=== PATIENT | female | born 1930 | race Caucasian/White ===

== ENCOUNTER 2017-03-12 08:30 | Inpatient (IN) | payer MEDICARE ==
[2017-03-12] MEDS ORDERED: ceFAZolin 2 GM PREMIX(*) 2 GM/50 ML BAG IVPB ONE (09:14)
[2017-03-12] MEDS ORDERED: Buffered Lidocaine 0.9% SYRIN* 5 ML/SYR SYRINGE ONE (09:14)
[2017-03-12] MEDS ORDERED: Bupivacaine 0.25% W/EPI* 50 ML VIAL ONE (09:18)
[2017-03-12] MEDS ORDERED: Insulin LISPRO* 1 UNITS UNIT SUBCUT ONE (09:43)
[2017-03-12] MEDS ORDERED: fentaNYL* 50 MCG/ML 2 ML VIAL (100 MCG VIAL) ONE ×2 (10:23→11:54)
[2017-03-12] MEDS ORDERED: Midazolam* 1 MG/ML 2 ML VIAL (2 MG) ONE ×2 (10:23→11:13)
[2017-03-12] MEDS ORDERED: Morphine PF AMP (0.5MG/ML)* 5 MG/10 ML AMP ONE (10:24)
[2017-03-12] MEDS ORDERED: Bupivacaine 0.5% SDV PF* 30 ML VIAL ONE (10:41)
[2017-03-12] MEDS ORDERED: Ondansetron INJ* 2 MG/ML VIAL IV PRN (11:28)
[2017-03-12] MEDS ORDERED: Propofol* 10 MG/ML 20 ML BTL IV PUSH ONE (11:33)
[2017-03-12] MEDS ORDERED: EPHEDrine (Pressors)* 50 MG/ML VIAL ONE (11:52)
[2017-03-12] MEDS ORDERED: Polyethylene Glycol 3350* 17 GM PACKET PO PRN (12:50)
[2017-03-12] MEDS ORDERED: Bisacodyl SUPP* 10 MG SUPP PR PRN (12:50)
[2017-03-12] MEDS ORDERED: oxyCODONE/Acetamin 5/325 MG* TAB PO PRN (12:56)
[2017-03-12] MEDS ORDERED: DiMENhydriNATE IV* 50 MG/ML VIAL IV PUSH PRN (12:56)
[2017-03-12] MEDS ORDERED: Nalbuphine* 20 MG/ML 1 ML VIAL IV PRN (12:56)
[2017-03-12] MEDS ORDERED: Naloxone* 0.4 MG/ML 1 ML VIAL IV PRN (12:56)
[2017-03-12] MEDS ORDERED: D5W 1/2 NS 1000 ML BAG* 1,000 ML IV SCH (13:00)
--- NOTE | 2017-03-12 13:12 | CONSULT ---
Subjective Date of Service: 03/12/17 Interval History: 86 yo F with hx of HTN, HLD, gout, ESRD on PD seen for co-management after L MIKEY. Patient currently drowsy from medications but denies pain or discomfort at this time. No complaints recently aside from arthritic pains. She usually ambulates with a walker or cane, occasionally a wheelchair for long distances. Family History: Unchanged from Admission - DM, cancer Social History: Unchanged from Admission - No tobacco abuse, no current ETOH or drug use Past Medical History: Unchanged from Admission - HTN, HLD, OA, gout, ESRD on PD Review of Systems - Measurements Intake and Output: Intake and Output Last 24 Hours 03/10/17 03/11/17 03/12/17 03/13/17 06:59 06:59 06:59 06:59 Output Total 20 Balance -20 Weight 78.744 kg Output: Residual 20 Ramirez 16 Fr 20 - Review of Systems Constitutional Symptoms: Negative: Fever Dermatology: Positive: Normal HEENT: Positive: Normal Eyes: Positive: Normal Thyroid: Positive: Normal Pulmonary: Positive: Normal Cardiology: Positive: Normal Gastroenterology: Positive: Normal Genital - Urinary: Positive: Normal Musculoskeletal: Positive: Joint Pain, Joint Stiffness, Arthritis Endocrinology: Positive: Normal Neurology: Positive: Normal Objective Active Medications: Amlodipine Besylate (Norvasc Tab*) 5 mg PO QAM [facility] Bisacodyl (Dulcolax Supp*) 10 mg [place] DAILY PRN Calcitriol (Rocaltrol Cap*) 0.25 mcg PO QAM ISA[facility] Dimenhydrinate (Dramamine Iv*) 12.5 mg IV PUSH Q6H PRN Diphenhydramine HCl (Benadryl Iv*) 12.5 mg IV Q6H PRN Docusate Sodium (Colace Cap*) 100 mg PO BID ISAÍAS Gabapentin (Neurontin Cap(*)) 100 mg PO 2200 ISA[facility]AS Heparin Sodium (Porcine) (Heparin Vial(*)) 5,000 units SUBCUT Q8HR [facility] Dextrose/Sodium Chloride (D5w 1/2 Ns 1000 Ml Bag*) 1,000 mls @ 100 mls/hr IV PER RATE ISAÍAS Cefazolin Sodium 1 gm/ Sodium (Chloride) 50 mls @ 200 mls/hr IVPB Q8H [facility] Lactulose (Lactulose*) 30 ml PO Q6H PRN Magnesium Hydroxide (Milk Of Magncraig Liq*) 30 ml PO BID ISAÍAS Metoprolol Tartrate (Lopressor Tab*) 50 mg PO 2200 ISAÍAS Morphine Sulfate (Morphine Inj (Syringe)*) 4 mg IV Q2H PRN Nalbuphine HCl (Nubain*) 5 mg IV Q6H PRN Naloxone HCl (Narcan*) 0.08 mg IV Q2M PRN Ondansetron HCl (Zofran Inj*) 4 mg IV ONCE PRN Ondansetron HCl (Zofran Inj*) 4 mg IV Q6H PRN Ondansetron HCl (Zofran Tab*) 4 mg PO Q6H PRN Oxycodone HCl (Roxycodone Tab*) 10 mg PO Q4H PRN Oxycodone/Acetaminophen (Percocet 5/325 Tab*) 1 tab PO Q3H PRN Oxycodone/Acetaminophen (Percocet 5/325 Tab*) 1 tab PO Q3H PRN Pantoprazole Sodium (Protonix Tab (Nf)) 40 mg PO QAM ISA[facility]AS Polyethylene Glycol/Electrolytes (Miralax*) 17 gm PO DAILY PRN Simvastatin (Zocor(Nf)) 20 mg PO 2200 ISAÍAS Warfarin Sodium (Coumadin Tab(*)) 8 mg PO ONCE@1700 ONE Vital Signs 03/12/17 09:25 Temperature 97.9 F Pulse Rate 76 Respiratory 16 Rate Blood Pressure 129/50 (mmHg) O2 Sat by Pulse 98 Oximetry Oxygen Devices in Use Now: Nasal Cannula Appearance: Elderly, F, laying in bed in NAD Eyes: No Scleral Icterus Ears/Nose/Mouth/Throat: - - Dry MM Neck: NL Appearance and Movements; NL JVP Respiratory: Symmetrical Chest Expansion and Respiratory Effort, Clear to Auscultation - in anterior dawson Cardiovascular: NL Sounds; No Murmurs; No JVD, RRR Abdominal: NL Sounds; No Tenderness; No Distention Lymphatic: No Cervical Adenopathy Extremities: No Edema, - - L hip with dressing in place Neurological: - - [place]st but oriented Assessment/Plan - Billing L MIKEY in an 86 yo F with hx of HTN, HLD, gout, ESRD on PD 1) L MIKEY - analgesia and AC as per Ortho - started on coumadin for tonight 2) HTN - continue home Metoprolol and Amlodipine 3) DM - hold home Glipizide - HISS 4) ESRD - Edith (Ortho PA) has gotten in touch with Paul for PD tonight - BMP in AM 5) DVT PPx - HSQ Thank you for this consult. Will continue to follow along.
[2017-03-12] MEDS ORDERED: Dextrose 50% Syringe 50 ML* 25 GM/50 ML SYRINGE IV PUSH PRN (13:14)
[2017-03-12] MEDS ORDERED: Heparin VIAL(*) 5000 UNITS/ML VIAL (FIVE THOUSAND) SUBCUT SCH (14:00)
--- NOTE | 2017-03-12 14:17 | RAD ---
INDICATION: Status post left total hip arthroplasty TECHNIQUE: 2 views of the pelvis were obtained. FINDINGS: The recently installed left hip prosthesis is anatomically aligned in the AP projection. There is no evidence of periprostatic fracture. Expected postsurgical changes include subcutaneous gas and overlying skin nickolas. Degenerative changes are noted at the right hip including joint space narrowing and early subchondral lucencies. IMPRESSION: Anatomic alignment of left hip prosthesis in the AP projection.
[2017-03-12] MEDS ORDERED: Warfarin TAB(*) 4 MG PO ONE (17:00)
[2017-03-12] MEDS: Insulin LISPRO* 1 UNITS UNIT SUBCUT SCH (17:46)
[2017-03-12] MEDS: ceFAZolin VIAL(*) 1 GM in NS 0.9% 50 ML* 50 ML IVPB SCH (20:12)
[2017-03-12] MEDS: Gabapentin CAP(*) 100 MG PO SCH (20:51)
[2017-03-12] MEDS: Magnesium Hydroxide LIQ* 30 ML UDC PO SCH (20:51)
[2017-03-12] MEDS: Docusate CAP* 100 MG PO SCH (21:09)
[2017-03-12] MEDS: Atorvastatin* 10 MG TAB PO SCH (21:09)
[2017-03-12] MEDS ORDERED: Metoprolol Tartrate TAB* 50 mg PO SCH (22:00)
[2017-03-13] MEDS ORDERED: Ondansetron TAB* 4 MG PO PRN (02:38)
[2017-03-13] MEDS ORDERED: diPHENhydraMINE IV* 50 MG/ML 1 ml VIAL (BENADRYL) IV PRN (02:38)
[2017-03-13] MEDS ORDERED: Morphine INJ* 4 MG/ML 1 ML SYRINGE IV PRN (02:38)
[2017-03-13] MEDS ORDERED: oxyCODONE/Acetamin 5/325 MG* TAB PO PRN (02:38)
[2017-03-13] MEDS: ceFAZolin VIAL(*) 1 GM in NS 0.9% 50 ML* 50 ML IVPB SCH ×2 (02:50→11:01)
--- NOTE | 2017-03-13 03:34 | OP ---
DATE OF OPERATION: 03/12/17 - ROOM #338 DATE OF : 34 SURGEON: Demetri Reeves MD CASINO HOST: Edith Lee RPA ANESTHESIOLOGIST: Rayne Butts MD ANESTHESIA: Spinal sedation. PREOPERATIVE DIAGNOSIS: Osteoarthritis, left hip. POSTOPERATIVE DIAGNOSIS: Osteoarthritis, left hip. PROCEDURE: Left total hip arthroplasty. ESTIMATED BLOOD LOSS: 250 cc. COMPLICATIONS: None. HARDWARE: Rylan 12.5 reduced neck standard offset M/L taper -3.5 mm, 36 mm head, 52 mm Continuum cup with 15-degree elevated liner. SUMMARY: Ms. Hercules is an 86-year-old female who has been indicated for a left total hip for some time. She always had some other medical complications. She had been treated conservatively with antiinflammatories initially and then injections, but these had all lost their effectiveness, plus with her kidney function, the antiinflammatories were contraindicated earlier on. Because of the hip pain, she is essentially wheelchair bound and even just transfers and lying down gives her significant pain. I discussed with her that total hip arthroplasty should work well to decrease that hip pain and give her some better mobility. Risks of surgery such as infection, scar formation, stiffness , DVT, pulmonary embolism, hardware failure, leg length discrepancy, and instability were some of the risks discussed. She had been declared medically optimized by her primary care, Cardiology and coordination was held with Nephrology such that she had dialysis this morning. DESCRIPTION OF PROCEDURE: The patient was brought to the OR and spinal anesthesia was introduced. Ramirez catheter was placed, a little bit of urine was obtained. Left hip area was prepped and then draped. Incision was made centered about the greater trochanter extending distally for about 8 cm and proximally for about 7 cm. Incision was carried down through the skin and subcutaneous fat. Small bleeders encountered were ligated using electrocautery. Fascia was exposed and sharply incised. Hohmann was placed under the gluteus medius/gluteus minimus and quite a bit of fatty tissue was about the short external rotators. Coming over the posterior edge of the greater trochanter, short external rotators and capsule were taken down together. She had quite a bit of scar and this allowed the leg to be moved a bit easier. T-capsulotomy was made. I actually had a little more room than I thought I would as I thought there would be quite the osteophyte coming over based on preoperative planning. Hip was able to be dislocated and the template was used to felton the femoral neck. Head was resected, but then got drawn right in to the acetabular socket. Corkscrew had to be used to remove the head and osteotome had been used to take down some of that posterior/superior osteophyte so that I could extract the head. It could be seen where I still had quite a bit of osteophyte anteriorly about the acetabulum as well. This would later be taken down using an osteotome and rongeur as well. Anterior C-retractor was placed so that I get better exposure of the acetabulum and an inferior acetabular retractor was also placed. Beginning with a 44-reamer, she was progressively reamed as I first came downwards and then slowly expanded at 46. I changed my angle to get my proper version and tilt. She was progressively expanded and at 51, had a nice side-to- side fit and good bleeding bone. This correlated well to preoperative templating. A 52-mm cup was called for and then impacted into place. Two screws were placed and a wonderful bite was obtained. Trial liner was placed and attention was turned to the proximal femur. Box osteotome was used to open the femoral canal and the intramedullary guide was run. Beginning with a #5 broach, she was progressively broached. With a 12.5, I had a very nice proximal fit and nice solid feel. She was trialed at first with a standard, but seemed tight for both length as well as offset. Reduced offset neck was then called for and trialed with a 0 head. She had very good stability, but in full adduction and internal rotation, would start to leave her out at about 35 degrees. Because of this, I decided to use the elevated liner. In extension, she was good as well as hyperflexion. Trial instrumentation was removed and elevated liner was then impacted into place. With removing the broach, she was still locked in solid and a 12.5 M/L taper was then impacted into place. She was trialed with a minus head and I liked her leg length much better as she seemed perfect. The -3.5 mm head was then impacted into place. Hip was relocated and then copiously pulse lavaged. Fascia was repaired using interrupted #1 Vicryl sutures. Wound was again copiously pulse lavaged and subcutaneous tissues were reapproximated in layers. Skin was closed using nickolas. Sterile dressing was applied. The patient was then rolled onto the hospital bed and was then stable on transfer to the recovery room. [id number]/[facility] #: [id number] MTDD
[2017-03-13 06:36] LABS: Hematocrit 25 % (35-47); Hemoglobin 8.5 g/dl (12.0-16.0)
[2017-03-13 06:51] LABS: Calcium 7.9 mg/dL (8.6-10.3); EGFR African American 19.1 (>60); EGFR Non-African American 14.9 (>60); Potassium 2.9 mmol/L (3.5-5.0)
[2017-03-13] MEDS ORDERED: Potassium Chlor TAB* 20 MEQ TAB.ER PO ONE (07:06)
[2017-03-13] MEDS ORDERED: Metoprolol Tartrate TAB* 50 mg PO SCH (07:22)
--- NOTE | 2017-03-13 07:23 | PN ---
Subjective Date of Service: 03/13/17 Interval History: Patient seen this morning. She had one episode of emesis after arriving to the floor but tolerated clears after that. Nursing notes state patient was dizzy overnight, she describes it as an "ache at the top of my head", resolved now. Pain is manageable. Family History: Unchanged from Admission Social History: Unchanged from Admission Past Medical History: Unchanged from Admission Objective Active Medications: Amlodipine Besylate (Norvasc Tab*) 5 mg PO QAM [facility] Atorvastatin Calcium (Lipitor*) 10 mg PO 220 [facility] Last Admin: 03/12/17 21:09 Dose: 10 mg Bisacodyl (Dulcolax Supp*) 10 mg [place] DAILY PRN PRN Reason: constipation Calcitriol (Rocaltrol Cap*) 0.25 mcg PO QAM [facility] Dextrose (D50w Syringe 50 Ml*) 12.5 gm IV PUSH .FOR FS < 60 - SS PRN PRN Reason: FS < 60 Diphenhydramine HCl (Benadryl Iv*) 12.5 mg IV Q6H PRN PRN Reason: PRURITIS Docusate Sodium (Colace Cap*) 100 mg PO BID [facility] Last Admin: 03/12/17 21:09 Dose: 100 mg Gabapentin (Neurontin Cap(*)) 100 mg PO 2199 [facility] Last Admin: 03/12/17 20:51 Dose: Not Given Heparin Sodium (Porcine) (Heparin Vial(*)) 5,000 units SUBCUT Q8HR [facility] Dextrose/Sodium Chloride (D5w 1/2 Ns 1000 Ml Bag*) 1,000 mls @ 100 mls/hr IV PER RATE [facility] Last Admin: 03/13/17 00:47 Dose: 100 mls/hr Cefazolin Sodium 1 gm/ Sodium (Chloride) 50 mls @ 200 mls/hr IVPB Q8H [facility] Stop: 03/13/17 11:14 Last Admin: 03/13/17 02:50 Dose: 200 mls/hr Insulin Human Lispro (Humalog*) 0 - 10 units SUBCUT AC [facility] PRN Reason: Protocol Last Admin: 03/12/17 17:46 Dose: 4 units Lactulose (Lactulose*) 30 ml PO Q6H PRN PRN Reason: constipation Magnesium Hydroxide (Milk Of Magnesia Liq*) 30 ml PO BID [facility] Last Admin: 03/12/17 20:51 Dose: Not Given Metoprolol Tartrate (Lopressor Tab*) 50 mg PO 2200 ISA[facility]AS Last Admin: 03/12/17 21:06 Dose: Not Given Morphine Sulfate (Morphine Inj (Syringe)*) 4 mg IV Q2H PRN PRN Reason: PAIN - BREAKTHROUGH Omeprazole (Prilosec Cap*) 20 mg PO QAM ISAÍAS Ondansetron HCl (Zofran Inj*) 4 mg IV Q6H PRN PRN Reason: nausea Ondansetron HCl (Zofran Tab*) 4 mg PO Q6H PRN PRN Reason: NAUSEA Oxycodone HCl (Roxycodone Tab*) 10 mg PO Q4H PRN PRN Reason: PAIN - MODERATE Oxycodone/Acetaminophen (Percocet 5/325 Tab*) 1 tab PO Q3H PRN PRN Reason: PAIN - MILD TO MODERATE Last Admin: 03/13/17 02:57 Dose: 1 tab Polyethylene Glycol/Electrolytes (Miralax*) 17 gm PO DAILY PRN PRN Reason: Constipation Potassium Chloride (Klor Con Er Tab*) 40 meq PO ONCE ONE Stop: 03/13/17 07:07 Vital Signs 03/12/17 03/12/17 03/12/17 09:25 12:50 12:55 Temperature 97.9 F 97.2 F Pulse Rate 76 73 74 Respiratory 16 14 14 Rate Blood Pressure 129/50 108/56 115/56 (mmHg) O2 Sat by Pulse 98 97 96 Oximetry 03/12/17 03/12/17 03/12/17 15:07 16:06 16:29 Temperature 96.3 F 96.1 F Pulse Rate 57 66 Respiratory 14 14 Rate Blood Pressure 120/49 113/45 (mmHg) O2 Sat by Pulse 100 100 98 Oximetry 03/12/17 03/12/17 03/12/17 18:05 19:15 19:47 Temperature 96.5 F 96.5 F Pulse Rate 88 79 Respiratory 17 16 16 Rate Blood Pressure 127/56 122/47 (mmHg) O2 Sat by Pulse 100 100 Oximetry 03/12/17 03/13/17 03/13/17 23:28 02:57 02:58 Temperature 97.0 F 97.8 F Pulse Rate 75 79 Respiratory 16 16 16 Rate Blood Pressure 122/50 133/48 (mmHg) O2 Sat by Pulse 100 100 Oximetry Oxygen Devices in Use Now: Nasal Cannula Appearance: Elderly, F, laying in bed in NAD Eyes: No Scleral Icterus Ears/Nose/Mouth/Throat: - - Dry MM Neck: NL Appearance and Movements; NL JVP Respiratory: Symmetrical Chest Expansion and Respiratory Effort, Clear to Auscultation Cardiovascular: NL Sounds; No Murmurs; No JVD, RRR Abdominal: NL Sounds; No Tenderness; No Distention, - - PD cath in place, dressing c/d/i Lymphatic: No Cervical Adenopathy Extremities: No Edema, - - L hip dressing in place Neurological: Alert and Oriented x 3 Lines/Tubes/Other Access: Clean, Dry and Intact Ramirez Result Diagrams: 03/13/17 06:27 03/13/17 06:27 Assess/Plan/Problems-Billing L MIKEY in an 86 yo F with hx of HTN, HLD, gout, ESRD on PD 1) L MIKEY - analgesia and AC as per Ortho - post-op anemia, no need for transfusion, continue to monitor 2) HTN - continue home Metoprolol (will liberalize parameters) and Amlodipine 3) DM - BGs elevated, likely to dextrose in IVF, will d/c for now - hold home Glipizide - HISS 4) ESRD - PD overnight - BMP shows some hypokalemia, will replete with just 40 mEq now and recheck this afternoon 5) DVT PPx - HSQ/Coumadin Thank you for this consult. Will continue to follow along.
[2017-03-13] MEDS: Magnesium Hydroxide LIQ* 30 ML UDC PO SCH ×2 (07:27→20:45)
[2017-03-13] MEDS: oxyCODONE TAB* 5 MG TAB PO PRN ×4 (08:04→20:45)
[2017-03-13] MEDS: Docusate CAP* 100 MG PO SCH ×2 (08:06→20:45)
[2017-03-13] MEDS: amLODIPine TAB* 5 MG PO SCH (08:06)
[2017-03-13] MEDS: Omeprazole CAP* 20 MG PO SCH (08:06)
[2017-03-13] MEDS: Insulin LISPRO* 1 UNITS UNIT SUBCUT SCH ×3 (08:07→16:48)
[2017-03-13] MEDS: Calcitriol CAP* 0.25 MCG PO SCH (08:11)
--- NOTE | 2017-03-13 08:44 | PN ---
Progress Note - Progress Note Date of Service: 03/13/17 SOAP: Subjective: []Patient seen ambulating from bed to chair with PT. C/o left hip pain but did well, feels nauseous but did not get her breakfast and took all of her am medications. Denies SOB, or dizziness. Objective: [] Vital Signs Temp 98.5 F 03/13/17 07:28 Pulse 79 03/13/17 07:28 Resp 16 03/13/17 08:04 BP 126/37 03/13/17 07:28 Pulse Ox 99 03/13/17 07:28 Intake & Output 03/12/17 03/13/17 03/13/17 18:59 06:59 18:59 Intake Total 800 2618 Output Total 260 550 Balance 540 2068 Weight 173 lb 9.6 oz Intake: IV Fluids 800 1514 D5W 1/2 NS 1514 LR 800 IVPB 104 ABX - CEFAZOLIN 104 Oral 1000 Output: Ramirez 150 550 Residual 20 Ramirez 16 Fr 20 Emesis 90 Other: Estimated Stool Amount Medium Laboratory Results - last 24 hr 03/12/17 03/12/17 03/12/17 09:36 09:55 12:56 Hgb Hct INR (Anticoag Therapy) Sodium Potassium Chloride Carbon Dioxide Anion Gap BUN Creatinine Est GFR ( Amer) Est GFR (Non-Af Amer) BUN/Creatinine Ratio Glucose POC Glucose (mg/dL) 205 H 192 H 151 H Calcium 03/12/17 03/12/17 03/13/17 17:36 20:46 06:27 Hgb 8.5 L Hct 25 L INR (Anticoag Therapy) Sodium Potassium Chloride Carbon Dioxide Anion Gap BUN Creatinine Est GFR ( Amer) Est GFR (Non-Af Amer) BUN/Creatinine Ratio Glucose POC Glucose (mg/dL) 204 H 290 H Calcium 03/13/17 03/13/17 06:27 06:27 Hgb Hct INR (Anticoag Therapy) 1.07 Sodium 135 Potassium 2.9 L Chloride 99 L Carbon Dioxide 27 Anion Gap 9 BUN 36 H Creatinine 3.00 H Est GFR ( Amer) 19.1 Est GFR (Non-Af Amer) 14.9 BUN/Creatinine Ratio 12.0 Glucose 375 H POC Glucose (mg/dL) Calcium 7.9 L left hip dressings are dry and intact +DF/PF left ankle calf non tender sensation intact distally Assessment: []s/p Left total hip arthroplasty POD #1 Plan: []PT/OT WBAT LLE Watch H/H will hold on transfusion today Coumadin with heparin bridge-6 mg today PMRU consult
[2017-03-13] MEDS: Heparin VIAL(*) 5000 UNITS/ML VIAL (FIVE THOUSAND) SUBCUT SCH ×2 (13:23→22:00)
[2017-03-13] MEDS: Ondansetron INJ* 2 MG/ML VIAL IV PRN ×2 (13:23→18:44)
[2017-03-13 14:17] LABS: BUN/Creatinine Ratio 11.4 (8-20); Calcium 8.3 mg/dL (8.6-10.3); EGFR African American 19.2 (>60); EGFR Non-African American 14.9 (>60); Potassium 3.2 mmol/L (3.5-5.0)
[2017-03-13] MEDS ORDERED: Warfarin TAB(*) 6 MG PO ONE (17:00)
[2017-03-13] MEDS: Gabapentin CAP(*) 100 MG PO SCH (22:00)
[2017-03-13] MEDS: Atorvastatin* 10 MG TAB PO SCH (22:01)
[2017-03-14] MEDS: oxyCODONE TAB* 5 MG TAB PO PRN ×3 (00:12→13:51)
[2017-03-14 05:16] LABS: Hematocrit 23 % (35-47); Hemoglobin 7.7 g/dl (12.0-16.0)
[2017-03-14] MEDS: Heparin VIAL(*) 5000 UNITS/ML VIAL (FIVE THOUSAND) SUBCUT SCH (06:06)
[2017-03-14] MEDS ORDERED: Potassium Chlor TAB* 20 MEQ TAB.ER PO ONE (07:36)
--- NOTE | 2017-03-14 07:48 | PN ---
Subjective Date of Service: 03/14/17 Interval History: Patient seen this morning. Said she had a "rough" day yesterday due to the pain but understands she needs to continue to push forward with rehab. Poor appetite. No chest pain or SOB. Reports 1 BM. Dressing changed by Dr. Reeves this morning. Family History: Unchanged from Admission Social History: Unchanged from Admission Past Medical History: Unchanged from Admission Objective Active Medications: Amlodipine Besylate (Norvasc Tab*) 5 mg PO QAM [facility] Atorvastatin Calcium (Lipitor*) 10 mg PO 2200 ISAÍAS Bisacodyl (Dulcolax Supp*) 10 mg [place] DAILY PRN Calcitriol (Rocaltrol Cap*) 0.25 mcg PO QAM ISA[facility] Dextrose (D50w Syringe 50 Ml*) 12.5 gm IV PUSH .FOR FS < 60 - SS PRN Diphenhydramine HCl (Benadryl Iv*) 12.5 mg IV Q6H PRN Docusate Sodium (Colace Cap*) 100 mg PO BID ISAÍAS Gabapentin (Neurontin Cap(*)) 100 mg PO 2200 [facility] Insulin Human Lispro (Humalog*) 0 - 10 units SUBCUT AC [facility]AS Lactulose (Lactulose*) 30 ml PO Q6H PRN Magnesium Hydroxide (Milk Of Magnesia Liq*) 30 ml PO BID ISAÍAS Metoprolol Tartrate (Lopressor Tab*) 50 mg PO 2200 IS[facility] Morphine Sulfate (Morphine Inj (Syringe)*) 4 mg IV Q2H PRN Mupirocin (Bactroban 2 % Oint*) 1 applic TOPICAL DAILY [facility]AS Omeprazole (Prilosec Cap*) 20 mg PO QAM [facility] Ondansetron HCl (Zofran Inj*) 4 mg IV Q6H PRN Ondansetron HCl (Zofran Tab*) 4 mg PO Q6H PRN Oxycodone HCl (Roxycodone Tab*) 10 mg PO Q4H PRN Oxycodone/Acetaminophen (Percocet 5/325 Tab*) 1 tab PO Q3H PRN Pharmacy Profile Note (Coumadin Daily Reminder*) 1 note FOLLOW UP 1700 ISAÍAS Polyethylene Glycol/Electrolytes (Miralax*) 17 gm PO DAILY PRN Potassium Chloride (Klor Con Er Tab*) 40 meq PO ONCE ONE Warfarin Sodium (Coumadin Tab(*)) 2 mg PO ONCE@1700 NR Vital Signs 03/13/17 03/13/17 03/13/17 13:15 13:56 14:04 Temperature 97.4 F Pulse Rate 88 91 Respiratory 16 Rate Blood Pressure 125/40 141/49 (mmHg) O2 Sat by Pulse 100 100 100 Oximetry 03/14/17 07:33 Temperature 99.6 F Pulse Rate 80 Respiratory 16 Rate Blood Pressure 117/40 (mmHg) O2 Sat by Pulse 94 Oximetry Oxygen Devices in Use Now: Nasal Cannula Appearance: Elderly, F, laying in bed in NAD Eyes: No Scleral Icterus Ears/Nose/Mouth/Throat: - - Dry MM Neck: NL Appearance and Movements; NL JVP Respiratory: Symmetrical Chest Expansion and Respiratory Effort, - - Slight inspiratory wheeze in R base, otherwise clear Cardiovascular: NL Sounds; No Murmurs; No JVD, RRR Abdominal: NL Sounds; No Tenderness; No Distention Lymphatic: No Cervical Adenopathy Extremities: No Edema, - - L hip dressing in place, c/d/i Neurological: Alert and Oriented x 3 Result Diagrams: 03/14/17 04:59 03/13/17 13:54 Assess/Plan/Problems-Billing L MIKEY in an 86 yo F with hx of HTN, HLD, gout, ESRD on PD 1) L MIKEY - analgesia and AC as per Ortho - post-op anemia, Hb drifting down, continue to monitor daily 2) HTN - continue home Metoprolol and Amlodipine 3) DM - BGs improved off of dextrose IVF - hold home Glipizide - HISS 4) ESRD - PD overnight - Replete K, recheck BMP this afternoon 5) DVT PPx - SCDS/Coumadin Thank you for this consult. Will continue to follow along.
[2017-03-14] MEDS: Insulin LISPRO* 1 UNITS UNIT SUBCUT SCH ×3 (08:47→16:43)
[2017-03-14] MEDS: Omeprazole CAP* 20 MG PO SCH (08:49)
[2017-03-14] MEDS: Docusate CAP* 100 MG PO SCH (08:49)
[2017-03-14] MEDS: amLODIPine TAB* 5 MG PO SCH (08:50)
[2017-03-14] MEDS: Magnesium Hydroxide LIQ* 30 ML UDC PO SCH (08:51)
[2017-03-14] MEDS ORDERED: Mupirocin 2% OINT* TUBE TOPICAL SCH (09:00)
[2017-03-14] MEDS: Calcitriol CAP* 0.25 MCG PO SCH (09:20)
[2017-03-14 13:03] LABS: BUN/Creatinine Ratio 11.3 (8-20); Calcium 8.2 mg/dL (8.6-10.3); EGFR African American 16.8 (>60); Potassium 3.8 mmol/L (3.5-5.0)
[2017-03-14 15:43] VITALS: BP 145/40
[2017-03-14] MEDS ORDERED: Warfarin TAB(*) 2 MG PO ONE (17:00)
--- NOTE | 2017-03-15 03:08 | DS ---
DISCHARGE SUMMARY: DATE OF ADMISSION: 03/12/17 DATE OF DISCHARGE: 03/14/17 ATTENDING PHYSICIAN: Demetri Reeves MD * (DICTATED BY ISRAEL IRVING) ADMISSION DIAGNOSIS: End-stage osteoarthritis, left hip. DISCHARGE DIAGNOSIS: End-stage osteoarthritis, left hip. SURGERY PERFORMED: Left total hip arthroplasty. HOSPITAL COURSE: The patient is an 86-year-old female, who has had significant pain in her left hip for quite some time. She was essentially wheelchair bound even just for transfers and lying down gave her significant pain. Due to the fact that she had other medical complications including end-stage renal disease with peripheral dialysis, this delayed her ability to have surgery. She was found to be at a point medically where she was stable to undergo total hip arthroplasty and she elected to proceed. She was taken to the operating room under the care of Dr. Demetri Reeves for the afore-mentioned surgery on the date of 03/12/17. She tolerated the surgery well and left the operating room in stable condition. The patient progressed satisfactorily with her physical therapy and occupational therapy goals; however, it was felt she would benefit from additional rehabilitation at the [facility] rehabilitation unit here at [facility]. She was found to be an acceptable candidate and was medically and orthopedically stable for discharge to the rehab unit on the date of . CONDITION ON DISCHARGE: The patient is afebrile. Her vital signs are stable. Her H and H is running slightly low at 7.7 and 23; however, Dr. Reeves is aware and Dr. Estevez is also aware. The patient is currently asymptomatic, does not complain of excessive somnolence or feeling lightheaded or dizzy upon standing. Her left hip incision is healing without evidence of infection. Her calf is soft and nontender. She has active dorsiflexion and plantarflexion of her left foot. She has a 2+ pedal pulse and has full sensation throughout the left lower extremity. PLAN: Discharge to [facility] rehabilitation. She will continue with Coumadin for DVT prophylaxis, which will be managed by Dr. Estevez. Her INR on discharge today is 1.89. She is receiving 2 mg of Coumadin today, 03/14/17, with repeat INR per Dr. Estevez's parameters. She will continue to bear weight as tolerated and will follow up with Dr. Reeves as scheduled in roughly 3 weeks in the office. ISRAEL IRVING [id number]/[facility] #: [id number] [facility] CENTERJulius
== END 2017-03-14 16:54 | DRG 469 ==
LOC: AA 09:13 → SSU 14:07
PROVIDERS: ADMIT Orthopaedic Surgery; ATTEND Orthopaedic Surgery
PROC: 3E1M39Z Irrigation of Peritoneal Cavity using Dialysate, Percutaneous Approach (ICD-10-PCS; 2017-03-12)
PROC: 0SRB02A Replacement of Left Hip Joint with Metal on Polyethylene Synthetic Substitute, Uncemented, Open Approach (ICD-10-PCS; principal; 2017-03-12 10:00)
DX: M16.12 Unilateral primary osteoarthritis, left hip (principal); N18.6 End stage renal disease; E11.22 Type 2 diabetes mellitus with diabetic chronic kidney disease; I12.0 Hypertensive chronic kidney disease with stage 5 chronic kidney disease or end stage renal disease; E78.5 Hyperlipidemia, unspecified; E11.40 Type 2 diabetes mellitus with diabetic neuropathy, unspecified; M25.752 Osteophyte, left hip; E66.9 Obesity, unspecified; I89.0 Lymphedema, not elsewhere classified; M10.9 Gout, unspecified; D64.9 Anemia, unspecified; E87.6 Hypokalemia; Z90.710 Acquired absence of both cervix and uterus; Z90.79 Acquired absence of other genital organ(s); Z99.2 Dependence on renal dialysis; Z68.27 Body mass index [BMI] 27.0-27.9, adult; Z87.442 Personal history of urinary calculi; Z79.4 Long term (current) use of insulin; Z90.722 Acquired absence of ovaries, bilateral; Z83.3 Family history of diabetes mellitus; Z80.9 Family history of malignant neoplasm, unspecified; Z99.3 Dependence on wheelchair; Z98.49 Cataract extraction status, unspecified eye
CPT/HCPCS: 36415; 72170; 80048; 85014; 85018; 85610; 90945; 94760; A9270-GY; C1713; C1776; G0257; J0690; J1644; J2250; J2300; J2405; J2704; J3010

== ENCOUNTER 2017-03-14 14:26 | Inpatient (IN) | payer MEDICARE ==
[2017-03-14] MEDS ORDERED: Bisacodyl SUPP* 10 MG SUPP PR PRN (17:30)
[2017-03-14] MEDS ORDERED: Senna TAB PO PRN (17:30)
[2017-03-14] MEDS ORDERED: Dextrose 50% Syringe 50 ML* 25 GM/50 ML SYRINGE IV PUSH PRN (17:36)
[2017-03-14] MEDS ORDERED: Warfarin TAB(*) 2 MG PO ONE (18:00)
[2017-03-14] MEDS: oxyCODONE/Acetamin 5/325 MG* TAB PO PRN (18:58)
[2017-03-14] MEDS ORDERED: oxyCODONE TAB* 5 MG TAB PO PRN (19:15)
[2017-03-14] MEDS: Docusate CAP* 100 MG PO SCH (20:02)
[2017-03-14] MEDS: Metoprolol Tartrate TAB* 50 mg PO SCH (22:02)
[2017-03-14] MEDS: Atorvastatin* 10 MG TAB PO SCH (22:02)
[2017-03-14] MEDS: Gabapentin CAP(*) 100 MG PO SCH (22:02)
--- NOTE | 2017-03-14 23:42 | HP ---
ADMISSION HISTORY AND PHYSICAL: DATE OF ADMISSION: 03/14/17 REASON FOR ADMISSION: Left total hip replacement. HISTORY OF PRESENT ILLNESS: Selina Hercules is an 86-year-old female. She has a medical history significant for end-stage renal disease and does peritoneal dialysis. Her qualitative executive researcher is Dr. Parmar. She in addition has a history of diabetes and hypertension, as well as hyperlipidemia. The patient has been plagued by left hip pain for quite some time. She felt like she was having difficulty even putting weight to the left leg while walking. She was scheduled to have a left total hip replacement. The original schedule had to be adjusted as the patient developed open wounds in her left leg and the surgery had to be postponed. The patient otherwise seemed to be good and her total hip replacement was scheduled for mid February. Unfortunately, her in early January. The patient; however, wished to go through with the surgery. She was admitted to [facility] on 03/12/17 and underwent and a left total hip arthroplasty that day. Postoperatively, she continued on peritoneal dialysis. She was started on Coumadin for DVT prophylaxis. She had acute blood loss anemia, but did not require a transfusion. She was felt to have physical therapy and occupational therapy needs. She is now being admitted for inpatient rehab so that she might return to independent living. PAST MEDICAL HISTORY: Significant for the aforementioned end-stage renal disease on peritoneal dialysis, she has a history of hypertension, hyperlipidemia, and diabetes. CURRENT MEDICATIONS: Include: 1. Norvasc. 2. Lipitor. 3. Rocaltrol. 4. Neurontin. 5. Lopressor. 6. Oxycodone. 7. Coumadin. 8. Prilosec. In addition, at home, she was taking Protonix instead of Prilosec and Zocor instead of Lipitor. She was taking methadone, although did not like it and was on glipizide 10 mg daily for diabetes. ALLERGIES: The patient has allergies listed to BACTRIM as well as SULFA antibiotics. SOCIAL HISTORY: She is a nonsmoker, nondrinker. She lives in a two-neal house by herself. She is going to have a friend to help set up peritoneal dialysis after discharge. As mentioned, her 6 weeks ago. REVIEW OF SYSTEMS: The patient reports no current shortness of breath or chest pain. PHYSICAL EXAMINATION VITAL SIGNS: Her temperature is 98, blood pressure is 145/49, pulse 57, respirations 18. HEENT: Her extraocular movements are intact. Tongue is midline. NECK: Supple. LUNGS: Clear to auscultation bilaterally. HEART: Sounds are regular. S1 and S2 are audible. ABDOMEN: Soft and nontender. Her peritoneal dialysis catheter site is clean. EXTREMITIES: Her left hip has a wound which is clean and dry. Peripheral pulses were intact. NEUROLOGIC: She is awake, alert, oriented. Muscle strength 5+/5 except the left hip which is 3/5 secondary to pain. FUNCTIONAL EXAM: She transfers with max assist. ASSESSMENT: Elective left total hip replacement in a patient with end-stage renal disease on peritoneal dialysis. PLAN: Integrate her into a comprehensive and therapeutic rehab program with the following goals: 1. Physical Therapy will work with the patient. They are going to work on functional transfer training and ambulation training with a walker. 2. Occupational Therapy will see the patient and work on her activities of daily living including toileting and toilet transfers. 3. Coumadin for DVT prophylaxis. 4. Adequate analgesia. 5. Her bowels will be regulated. 6. We will consult the dialysis team for peritoneal dialysis. 7. Advance directives: The patient is a full code. Her daughter is her surrogate decision maker. 8. For diabetes, we will do fingersticks 4 times a day with sliding scale insulin. We will restart her glipizide. 9. Continue Lipitor for hyperlipidemia. 10. Family training as appropriate. 11. director of student financial services will be closely involved to make sure that any services and equipment that the patient requires are in place prior to discharge. 12. Home with appropriate services. ESTIMATED LENGTH OF STAY: 12 to 14 days. [id number]/[facility] #: [id number] [facility]INT[facility]
[2017-03-15] MEDS: Acetaminophen TAB* 325 MG PO PRN ×2 (05:51→22:05)
[2017-03-15] MEDS: Omeprazole CAP* 20 MG PO SCH (05:51)
[2017-03-15 06:42] LABS: Hematocrit 22 % (35-47); Hemoglobin 7.3 g/dl (12.0-16.0); Mean Corpuscular HGB Conc 33 g/dl (31-36); Mean Corpuscular Hemoglobin 33 pg (27-31); Mean Corpuscular Volume 98 fL (80-97); Mean Platelet Volume 7 um3 (7.4-10.4); Red Blood Count 2.24 10^6/ul (4.0-5.4); Red Cell Distribution Width 14 % (10.5-15); White Blood Count 5.6 10^3/ul (3.5-10.8)
[2017-03-15 07:08] LABS: ALT < 3 U/L (7-52); AST 16 U/L (13-39); Albumin 2.6 g/dL (3.2-5.2); Alkaline Phosphatase 51 U/L (34-104); Anion Gap 7 mmol/L (2-11); BUN/Creatinine Ratio 10.2 (8-20); Blood Urea Nitrogen 38 mg/dL (6-24); CO2 Carbon Dioxide 28 mmol/L (22-32); Calcium 8.1 mg/dL (8.6-10.3); Chloride 97 mmol/L (101-111); EGFR African American 14.9 (>60); EGFR Non-African American 11.6 (>60); Globulin 2.9 g/dL (2-4); Glucose 151 mg/dL (70-100); Potassium 4.1 mmol/L (3.5-5.0); Sodium 132 mmol/L (133-145); Total Protein 5.5 g/dL (6.4-8.9)
[2017-03-15] MEDS: Calcitriol CAP* 0.25 MCG PO SCH (10:41)
[2017-03-15] MEDS: Insulin LISPRO* 1 UNITS UNIT SUBCUT SCH ×3 (10:41→18:27)
[2017-03-15] MEDS: Docusate CAP* 100 MG PO SCH ×2 (10:43→22:05)
[2017-03-15] MEDS: amLODIPine TAB* 5 MG PO SCH (10:43)
[2017-03-15] MEDS: oxyCODONE/Acetamin 5/325 MG* TAB PO PRN (10:51)
--- NOTE | 2017-03-15 15:38 | RAD ---
HISTORY: Cough COMPARISONS: February 28, 2017 VIEWS: 4: Frontal dual-energy and lateral views of the chest. FINDINGS: CARDIOMEDIASTINAL SILHOUETTE: The cardiomediastinal silhouette is normal. HERMAN: The herman are normal. PLEURA: The costophrenic angles are sharp. No pleural abnormalities are noted. LUNG PARENCHYMA: The lungs are clear. ABDOMEN: The upper abdomen is clear. There is no subphrenic gas. BONES AND SOFT TISSUES: Degenerative changes are noted along the spine. OTHER: None. IMPRESSION: NO ACTIVE CARDIOPULMONARY DISEASE.
[2017-03-15] MEDS ORDERED: Atorvastatin* 10 MG TAB PO SCH (17:00)
[2017-03-15] MEDS ORDERED: Warfarin TAB(*) 2 MG PO ONE (19:00)
[2017-03-15] MEDS: Metoprolol Tartrate TAB* 50 mg PO SCH (22:04)
[2017-03-15] MEDS: Atorvastatin* 10 MG TAB PO SCH (22:05)
[2017-03-15] MEDS: Gabapentin CAP(*) 100 MG PO SCH (22:05)
[2017-03-16] MEDS: oxyCODONE/Acetamin 5/325 MG* TAB PO PRN ×2 (05:21→19:01)
[2017-03-16] MEDS: Omeprazole CAP* 20 MG PO SCH (07:57)
[2017-03-16] MEDS: amLODIPine TAB* 5 MG PO SCH (07:57)
[2017-03-16] MEDS: Docusate CAP* 100 MG PO SCH ×2 (07:57→20:04)
[2017-03-16] MEDS: Calcitriol CAP* 0.25 MCG PO SCH (07:57)
[2017-03-16] MEDS: Insulin LISPRO* 1 UNITS UNIT SUBCUT SCH ×3 (07:58→17:41)
[2017-03-16 08:46] LABS: Hematocrit 22 % (35-47); Hemoglobin 7.5 g/dl (12.0-16.0); Mean Corpuscular HGB Conc 34 g/dl (31-36); Mean Corpuscular Hemoglobin 33 pg (27-31); Mean Corpuscular Volume 98 fL (80-97); Mean Platelet Volume 7 um3 (7.4-10.4); Red Blood Count 2.28 10^6/ul (4.0-5.4); Red Cell Distribution Width 15 % (10.5-15); White Blood Count 5.4 10^3/ul (3.5-10.8)
[2017-03-16 10:49] LABS: Urine Bacteria 1+ (Absent); Urine Bilirubin Negative (Negative); Urine Glucose Negative (Negative); Urine Nitrite Negative (Negative)
--- NOTE | 2017-03-16 12:20 | PMRUTEAM ---
PMRU: Goals Current Status: Nursing: Current Status Skin Deviations [Left hip] Incision Skin Deviations [Buttocks] Bruise Skin Deviations [Left Abdomen] Other Skin Deviations [Bilateral Arm Rash ] Skin Deviations [Bilateral Leg Other ] Skin Deviation Description [ purple bruise covering inside of buttocks shaped Buttocks] like a bedpan. Patient doesn't feel it. Skin Deviation Description [ peritoneal dialysis port Left Abdomen] Skin Deviation Description [ some tiny open spots on right arm, right arm rash Bilateral Arm] more pronounced than left, especially in fold of elbow. Right arm also warmer. 5" bruise on right arm. Skin Deviation Description [ discoloration noted Bilateral Leg] Physical Therapy: Current Status Bed Mobility Assistance mod assist to get legs in Transfer Moblility Assistance Mod Assist Transfer/Bed Mobility Rolling Walker Recommended Devices Ambulation Assistance Contact Guard Assist Ambulation Assistive Devices Rolling Walker Number of Feet Patient 100ft Ambulated Occupational Therapy: Current Status Upper Body Dressing set up Lower Body Dressing min a/cga Bathing min Assist Toileting Min Assist- contact guard Toilet Transfer Min Assist Eating Independent Rec Therapy: Current Status Summary of Assessment and Pt. was open to conversation - very talkative and Clinical Impression expressive throughout. Pt. spoke in depth about her whom in January 2017 - pt. was very tearful about this. Pt. observed to benefit from sharing stories and reminiscing. Treatment Goals Pt. will engage in leisure activities while on the unit. Treatment Plan Provide RT services and encourage involvement. Provide 1:1 sessions to allow for expression. Enter co founder and cto consult. Social Work: Current Status Discharge Plan return home with home care svs and support from friends and pvt duty ASSIST[employer]ARY Potential for Family Training TBD if pt's ASSISTANT CORPORATE SECRETARY will be available Anticipated Discharge Home Destination Discharge With home care svs and family support Goals: Physical Therapy: Initial Goals Bed Mobility Assistance Independent Transfer Mobility Assistance Independent Transfer/Bed Mobility Rolling Walker Recommended Devices Ambulation Independent Ambulation Recommended Devices Rolling Walker Ambulation Distance 150 Stairs Assistance Independent Stair Recommended Devices Two Rails Number of Stairs 5 Occupational Therapy: Initial Goals Goals to be Completed in (Days 7-10 ) Upper Body Bathing Routine Independent Lower Body Bathing Routine Modified Independent with Upper Body Dressing Routine Independent Lower Body Dressing Routine Modified Independent with Toilet Hygeine and Clothing Modified Independent with Management Routine Toilet Transfer Routine Modified Independent with Tub Transfer Routine Modified Independent with Functional Transfers for ADL Modified Independent with Grooming Routine Independent Social Work: Goals Discharge Plan return home with home care svs and support from friends and pvt duty ASSISTANT [employer]PORATE SECRETARY Potential for Family Training TBD if pt's ASSISTANT CORPORATE SECRETARY will be available Anticipated Discharge Home Destination Discharge With home care svs and family support Care Plan: Care Plan ADL's - Improve/Maintain Start: 03/14/17 21:50 Freq: DAILY Status: Active Target: Activity Type Activity Date Activity User E-Sign Co-Sign Detail Recorded Client Recorded Date Recorded By Document 03/15/17 14:39 [id number] 03/15/17 14:39 [id number] 03/15/17 14:39 PMRU Outcome: ADL's/ADL Transfers Orders/Interventions Occupational Therapy Evaluation & Treatment Communication Tool in Patient Room Device Yes: FWW, w/c Patient to receive OT 5x/wk for 60-120 Therex min/day Self Care Management Group Therapy UE/LE ADL's with Assist Yes ADL Transfers with Assist Yes Toileting: Transfers,Clothing Management Yes ,Hygeine w/Assist Light Kitchen/Laundry w/Assist Yes Progression Toward Outcome/Goals Progressing Outcome/Goals Met Pt progressing toward OT goals . Pt demonstrating increased indepdence with functional transfers and self care tasks . Communication-Improve/Maintain Start: 03/14/17 21:50 Freq: DAILY Status: Active Target: Activity Type Activity Date Activity User E-Sign Co-Sign Detail Recorded Client Recorded Date Recorded By Document 03/16/17 00:52 [id number] [id number] 03/16/17 00:53 [id number] 03/16/17 00:52 PMRU Outcome: Communication/Cognitive Status Outcome/Goals Use Comm Tools/ Devices Makes Needs Known Effectively Progression Toward Outcomes/Goals Progressing Coping/Psych-Improve/Maintain Start: 03/14/17 21:50 Freq: DAILY Status: Active Target: Activity Type Activity Date Activity User E-Sign Co-Sign Detail Recorded Client Recorded Date Recorded By Document 03/15/17 20:45 [id number] 03/15/17 20:46 [id number] 03/15/17 20:45 PMRU Outcome: Coping/Psychosocial Coping Outcome/Goals Verbalization of Acceptance of Rehab Admit Verbalization of Sense of Control Over Health Status Utilization of Available Support Systems Psychosocial Outcome/Goals Maintain/ Improve Emotional Health Demonstrates Knowledge of Healthy Coping Mechanisms Available Cooperate/ Participate in Plan Progression Toward Outcome/Goals - Progressing Coping Progression Toward Outcome/Goals - Progressing Psychosocial DVT Prophylaxis- Improve/Maintain Start: 03/14/17 21:50 Freq: DAILY Status: Active Target: Activity Type Activity Date Activity User E-Sign Co-Sign Detail Recorded Client Recorded Date Recorded By Document 03/15/17 20:45 [id number] 03/15/17 20:46 [id number] 03/15/17 20:45 PMRU Outcome: DVT Prophylaxis Outcome/Goals Remains Free of DVT Complies with DVT Prophylaxis /Treatment TEDS Stockings on Every AM, Off at HS Progression Toward Outcome/Goals Progressing Discharge Planning - Improve/Maintain Start: 03/14/17 21:50 Freq: DAILY Status: Active Target: Activity Type Activity Date Activity User E-Sign Co-Sign Detail Recorded Client Recorded Date Recorded By Document 03/16/17 00:52 [id number] [id number] 03/16/17 00:53 [id number] 03/16/17 00:52 PMRU Outcome: Discharge Planning Update Patient Family No Outcome/Goals Demonstrates Understanding of Discharge Plan Progression Toward Outcome/Goals Progressing /GI-Improve/Maintain Start: 03/14/17 21:50 Freq: DAILY Status: Active Target: Activity Type Activity Date Activity User E-Sign Co-Sign Detail Recorded Client Recorded Date Recorded By Document 03/15/17 20:45 [id number] 03/15/17 20:46 [id number] 03/15/17 20:45 PMRU Outcome: Genitourinary/ Gastrointestinal Genitourinary- Outcome/Goals Maintain/ Achieve Urinary Continence Remain Free of Hospital- Acquired UTI Gastrointestinal-Outcome/Goals Maintain/ Achieve Bowel Regularity in Accordance with Pt's Baseline Prevent Constipation Bowel Program Progression Toward Outcome/Goals - Progressing Mobility- Improve/Maintain Start: 03/14/17 21:50 Freq: DAILY Status: Active Target: Activity Type Activity Date Activity User E-Sign Co-Sign Detail Recorded Client Recorded Date Recorded By Document 03/15/17 17:44 [id number] 03/15/17 17:46 [id number] 03/15/17 17:44 PMRU Outcome: Mobility Physical Therapy Evaluation and Yes Treatment Activity OOB with Assistance Yes WBAT Yes Device Yes Assistance Yes Patient to be seen 5x/wk for 60-120 min/ Therex day for: Mobility Training Gait Training W/C Mobility Balance Outcome/Goals Maintain/ Achieve Baseline Mobility Status Improve Mobility Status Demonstrates Proper Use of Assistive Devices Free from Complications of Immobility Bed Mobility Yes: independent Transfers Yes: independent with rolling walker Gait x ft Yes: independent with rolling walker 150' Up/Down Stairs Yes: independent with 2 rails up /down 5 stairs Nutrition/Swallowing- Improve/Maintain Start: 03/14/17 21:50 Freq: DAILY Status: Active Target: Activity Type Activity Date Activity User E-Sign Co-Sign Detail Recorded Client Recorded Date Recorded By Document 03/15/17 20:45 [id number] 03/15/17 20:46 [id number] 03/15/17 20:45 PMRU Outcome: Nutrition/Swallowing Outcome/Goals Demonstrates Adequate Hydration/ Prevents Dehydration Maintain/ Improve Nutritional Status Progression Toward Outcome/Goals Progressing Pain/Comfort- Improve/Maintain Start: 03/14/17 21:50 Freq: DAILY Status: Active Target: Activity Type Activity Date Activity User E-Sign Co-Sign Detail Recorded Client Recorded Date Recorded By Document 03/15/17 20:45 [id number] 03/15/17 20:46 [id number] 03/15/17 20:45 PMRU Outcome: Pain/Comfort Outcome/Goals Demonstrates Knowledge and Use of Available Comfort Measures Achieves Acceptable Comfort/Pain Level as Determined by Patient/Condit Maintain Comfort Level Allowing Patient to Fully Participate in Rehab Progression Toward Outcome/Goals Progressing Safety- Improve/Maintain Start: 03/14/17 21:50 Freq: DAILY Status: Active Target: Activity Type Activity Date Activity User E-Sign Co-Sign Detail Recorded Client Recorded Date Recorded By Document 03/15/17 20:45 [id number] 03/15/17 20:46 [id number] 03/15/17 20:45 PMRU Outcome: Safety Outcome/Goals Remain Free of Injury or Harm Cooperates with Safety Measures for Least Restrictive Environment Prevent Falls/ Injury Equipment Needed Progression Toward Outcome/Goals Progressing Skin- Improve/Maintain Start: 03/14/17 21:50 Freq: DAILY Status: Active Target: Activity Type Activity Date Activity User E-Sign Co-Sign Detail Recorded Client Recorded Date Recorded By Document 03/15/17 20:45 [id number] 03/15/17 20:46 [id number] 03/15/17 20:45 PMRU Outcome: Skin Skin Risk Level Medium Skin Orders Turn/Position q2hr While in Bed Outcome/Goals Maintain/ Improve Skin Intergrity Surgical Incisions Healing Progression Toward Outcome/Goals Progressing Medicine Note: Length of Stay: [1 week] Anticipated Discharge Destination: Home Tentative Discharge Date: [03/23/17] Discharged to: [home]
[2017-03-16] MEDS: Ciprofloxacin TAB* 500 MG PO SCH (14:05)
[2017-03-16] MEDS: Polyethylene Glycol 3350* 17 GM PACKET PO PRN (14:41)
[2017-03-16] MEDS: Warfarin TAB(*) 3 MG PO SCH (16:44)
[2017-03-16] MEDS ORDERED: Warfarin TAB(*) 2 MG PO SCH (17:00)
[2017-03-16] MEDS: Metoprolol Tartrate TAB* 50 mg PO SCH (21:14)
[2017-03-16] MEDS: Gabapentin CAP(*) 100 MG PO SCH (21:14)
[2017-03-16] MEDS: Atorvastatin* 10 MG TAB PO SCH (21:14)
[2017-03-17] MEDS: oxyCODONE/Acetamin 5/325 MG* TAB PO PRN (05:00)
[2017-03-17] MEDS: Ciprofloxacin TAB* 500 MG PO SCH (07:33)
[2017-03-17] MEDS: Omeprazole CAP* 20 MG PO SCH (07:33)
[2017-03-17] MEDS: amLODIPine TAB* 5 MG PO SCH (07:33)
[2017-03-17] MEDS: Docusate CAP* 100 MG PO SCH ×2 (07:33→21:00)
[2017-03-17] MEDS: Insulin LISPRO* 1 UNITS UNIT SUBCUT SCH ×3 (07:33→17:11)
[2017-03-17] MEDS: Calcitriol CAP* 0.25 MCG PO SCH (07:34)
[2017-03-17] MEDS: Polyethylene Glycol 3350* 17 GM PACKET PO PRN (07:39)
[2017-03-17] MEDS: glipiZIDE TAB* 5 MG PO SCH (11:17)
[2017-03-17 13:40] LABS: BUN/Creatinine Ratio 11.5 (8-20); Calcium 7.9 mg/dL (8.6-10.3); EGFR African American 14.8 (>60); EGFR Non-African American 11.5 (>60); Magnesium 1.8 mg/dL (1.9-2.7); Potassium 3.7 mmol/L (3.5-5.0)
[2017-03-17] MEDS: Warfarin TAB(*) 3 MG PO SCH (17:10)
[2017-03-17] MEDS: Metoprolol Tartrate TAB* 50 mg PO SCH (21:00)
[2017-03-17] MEDS: Gabapentin CAP(*) 100 MG PO SCH (21:00)
[2017-03-17] MEDS: Atorvastatin* 10 MG TAB PO SCH (21:01)
[2017-03-18] MEDS: Docusate CAP* 100 MG PO SCH ×2 (08:21→20:56)
[2017-03-18] MEDS: Omeprazole CAP* 20 MG PO SCH (08:22)
[2017-03-18] MEDS: Ciprofloxacin TAB* 500 MG PO SCH (08:22)
[2017-03-18] MEDS: glipiZIDE TAB* 5 MG PO SCH (08:22)
[2017-03-18] MEDS: oxyCODONE/Acetamin 5/325 MG* TAB PO PRN ×2 (08:22→14:45)
[2017-03-18] MEDS: amLODIPine TAB* 5 MG PO SCH (08:22)
[2017-03-18] MEDS: Calcitriol CAP* 0.25 MCG PO SCH (08:22)
[2017-03-18] MEDS: Insulin LISPRO* 1 UNITS UNIT SUBCUT SCH ×3 (08:23→17:01)
[2017-03-18] MEDS: Polyethylene Glycol 3350* 17 GM PACKET PO SCH (08:24)
[2017-03-18] MEDS ORDERED: Darbepoetin Alfa* 100 MCG/0.5 ML SYRINGE SUBCUT ONE (11:32)
[2017-03-18] MEDS: Warfarin TAB(*) 3 MG PO SCH (17:24)
[2017-03-18] MEDS ORDERED: diPHENhydraMINE PO* 25 MG PO PRN (18:46)
[2017-03-18] MEDS: Atorvastatin* 10 MG TAB PO SCH (20:56)
[2017-03-18] MEDS: Gabapentin CAP(*) 100 MG PO SCH (20:56)
[2017-03-18] MEDS: Metoprolol Tartrate TAB* 50 mg PO SCH (20:57)
[2017-03-19] MEDS: oxyCODONE/Acetamin 5/325 MG* TAB PO PRN (04:07)
[2017-03-19] MEDS: glipiZIDE TAB* 5 MG PO SCH (08:48)
[2017-03-19] MEDS: Omeprazole CAP* 20 MG PO SCH (08:48)
[2017-03-19] MEDS: Docusate CAP* 100 MG PO SCH ×2 (08:48→22:17)
[2017-03-19] MEDS: Insulin LISPRO* 1 UNITS UNIT SUBCUT SCH ×3 (08:48→17:19)
[2017-03-19] MEDS: amLODIPine TAB* 5 MG PO SCH (08:48)
[2017-03-19] MEDS: Polyethylene Glycol 3350* 17 GM PACKET PO SCH (08:49)
[2017-03-19] MEDS: Calcitriol CAP* 0.25 MCG PO SCH (08:55)
[2017-03-19] MEDS: Acetaminophen TAB* 325 MG PO PRN (08:55)
[2017-03-19] MEDS: Ondansetron ODT TAB* 4 MG SL PRN (12:04)
[2017-03-19] MEDS: Warfarin TAB(*) 3 MG PO SCH (17:19)
[2017-03-19] MEDS: Atorvastatin* 10 MG TAB PO SCH (22:18)
[2017-03-19] MEDS: Gabapentin CAP(*) 100 MG PO SCH (22:18)
[2017-03-19] MEDS: Metoprolol Tartrate TAB* 50 mg PO SCH (22:19)
[2017-03-20] MEDS: oxyCODONE/Acetamin 5/325 MG* TAB PO PRN ×2 (02:20→08:35)
[2017-03-20] MEDS: glipiZIDE TAB* 5 MG PO SCH (08:34)
[2017-03-20] MEDS: Insulin LISPRO* 1 UNITS UNIT SUBCUT SCH ×3 (08:34→16:35)
[2017-03-20] MEDS: Docusate CAP* 100 MG PO SCH ×2 (08:34→20:53)
[2017-03-20] MEDS: Omeprazole CAP* 20 MG PO SCH (08:34)
[2017-03-20] MEDS: amLODIPine TAB* 5 MG PO SCH (08:34)
[2017-03-20] MEDS: Calcitriol CAP* 0.25 MCG PO SCH (08:34)
--- NOTE | 2017-03-20 12:34 | PMRUTEAM ---
PMRU: Goals Current Status: Nursing: Current Status Skin Deviations [Left hip] Incision Skin Deviations [Buttocks] Bruise Skin Deviations [Left Abdomen] Other Skin Deviations [Bilateral Arm Rash ] Skin Deviations [Bilateral Leg Rash ] Skin Deviation Description [ open to air Left hip] Skin Deviation Description [ healing Buttocks] Skin Deviation Description [ dialysis port Left Abdomen] Skin Deviation Description [ some tiny open spots on right arm, right arm rash Bilateral Arm] more pronounced than left, especially in fold of elbow. Right arm also warmer. 5" bruise on right arm. Skin Deviation Description [ discoloration noted Bilateral Leg] Bladder Current Status continent Bowel Current Status continent Nutrition Current Status adequate Physical Therapy: Current Status Bed Mobility Assistance Min Assist,Mod Assist Transfer Moblility Assistance Supervision Transfer/Bed Mobility Rolling Walker Recommended Devices Ambulation Assistance Supervision Ambulation Assistive Devices Rolling Walker Number of Feet Patient 100' Ambulated Stairs Assistance Contact Guard Assist Stairs Recommended Devices Two Rails Number of Stairs 3 Occupational Therapy: Current Status Upper Body Dressing Supervision Upper Body Dressing Progress set-up Lower Body Dressing Contact Guard Assist,Min Assist Lower Body Dressing Progress CGA/min A for socks Bathing Supervision,Contact Guard Assist Bathing Progress CGA/sup Toileting Supervision,Contact Guard Assist Toileting Progress CGA/sup Toilet Transfer Contact Guard Assist Toilet Transfer Progress CGA Shower Transfer Contact Guard Assist Shower Transfer Progress CGA Eating Independent Rec Therapy: Current Status Summary of Assessment and RT assessment complete and pt. is aware of Clinical Impression services. Pt. is talkative in conversation and has been tearful at times. Treatment Goals Pt. will engage in leisure activities while on the unit. Treatment Plan Provide RT services and encourage involvement. Provide 1:1 sessions to allow for expression. Entered rn bone marrow transplant consult. Social Work: Current Status Discharge Plan return home with home care svs and support from friends and pvt duty [employer] Potential for Family Training TBD if pt's [employer]OR will be available Anticipated Discharge Home Destination Discharge With home care svs and family support Nutrition: Current Status Monitoring Made two attempts to visit pt today, but pt on telephone. Intake remains adequate: 75-100% of past few meals. Noted 2 containers of Glucerna supplement in unit pantry fridge; will suspend for now since intake adequate at mealtimes. BG ranging 120s-180s - adequately controlled. BMs regular: 03/17; 7/30. Not able to provide food/drug interaction instruction today; note d/c planned for 03/23. Goals: Physical Therapy: Initial Goals Physical Therapy: Updated Goals Transfer Mobility Assistance Independent Transfer/Bed Mobility Rolling Walker Recommended Devices Ambulation Assistance Independent Ambulation Assistive Devices Rolling Walker Ambulation Distance (ft) 150 Wheelchair Propulsion Ability Independent Stairs Assistance Independent Stairs Recommended Devices Two Rails Number of Stairs 6 Occupational Therapy: Initial Goals Goals to be Completed in (Days 7-10 ) Upper Body Bathing Routine Independent Lower Body Bathing Routine Modified Independent with Upper Body Dressing Routine Independent Lower Body Dressing Routine Modified Independent with Toilet Hygeine and Clothing Modified Independent with Management Routine Toilet Transfer Routine Modified Independent with Tub Transfer Routine Modified Independent with Functional Transfers for ADL Modified Independent with Grooming Routine Independent Nursing: Goals Bladder Goal continent Bowel Goal continent Nutrition Goal adequate Nutrition: Goals Intervention Goals 1. Intake will remain adequate to maintain stable wt 2. BG will remain adequately controlled 3. Pt will maintain regular bowel pattern without constipation 4. Coumadin/Vit K instruction will be provided prior to d/c as able Social Work: Goals Discharge Plan return home with home care svs and support from friends and pvt duty [employer] Potential for Family Training TBD if pt's [employer]OR will be available Anticipated Discharge Home Destination Discharge With home care svs and family support Care Plan: Care Plan ADL's - Improve/Maintain Start: 03/14/17 21:50 Freq: DAILY Status: Active Target: Activity Type Activity Date Activity User E-Sign Co-Sign Detail Recorded Client Recorded Date Recorded By Document 03/19/17 15:18 [id number] 03/19/17 15:19 [id number] 03/19/17 15:18 PMRU Outcome: ADL's/ADL Transfers Orders/Interventions Occupational Therapy Evaluation & Treatment Communication Tool in Patient Room Device Yes: FWW, w/c Patient to receive OT 5x/wk for 60-120 Therex min/day Self Care Management Group Therapy UE/LE ADL's with Assist Yes ADL Transfers with Assist Yes Toileting: Transfers,Clothing Management Yes ,Hygeine w/Assist Light Kitchen/Laundry w/Assist Yes Progression Toward Outcome/Goals Progressing Outcome/Goals Met Pt progressing toward OT goals . Pt demonstrating increased indepedence with functional transfers and self care tasks . Communication-Improve/Maintain Start: 03/14/17 21:50 Freq: DAILY Status: Active Target: Activity Type Activity Date Activity User E-Sign Co-Sign Detail Recorded Client Recorded Date Recorded By Document 03/17/17 11:03 [id number] 03/17/17 11:13 [id number] 03/17/17 11:03 PMRU Outcome: Communication/Cognitive Status Outcome/Goals Use Comm Tools/ Devices Makes Needs Known Effectively Progression Toward Outcomes/Goals Progressing Coping/Psych-Improve/Maintain Start: 03/14/17 21:50 Freq: DAILY Status: Active Target: Activity Type Activity Date Activity User E-Sign Co-Sign Detail Recorded Client Recorded Date Recorded By Document 03/20/17 08:00 [id number] 03/20/17 11:12 [id number] 03/20/17 08:00 PMRU Outcome: Coping/Psychosocial Coping Outcome/Goals Verbalization of Acceptance of Rehab Admit Verbalization of Sense of Control Over Health Status Utilization of Available Support Systems Psychosocial Outcome/Goals Maintain/ Improve Emotional Health Demonstrates Knowledge of Healthy Coping Mechanisms Available Cooperate/ Participate in Plan Progression Toward Outcome/Goals - Progressing Coping Progression Toward Outcome/Goals - Progressing Psychosocial Coping Outcome/Goals Met Demonstrates Understanding of Rehab Admit and Goal Setting Process DVT Prophylaxis- Improve/Maintain Start: 03/14/17 21:50 Freq: DAILY Status: Active Target: Activity Type Activity Date Activity User E-Sign Co-Sign Detail Recorded Client Recorded Date Recorded By Document 03/20/17 08:00 [id number] 03/20/17 11:12 [id number] 03/20/17 08:00 PMRU Outcome: DVT Prophylaxis Outcome/Goals Remains Free of DVT Progression Toward Outcome/Goals Progressing Outcome/Goals Met Remains Free of DVT Discharge Planning - Improve/Maintain Start: 03/14/17 21:50 Freq: DAILY Status: Active Target: Activity Type Activity Date Activity User E-Sign Co-Sign Detail Recorded Client Recorded Date Recorded By Document 03/17/17 11:03 [id number] 03/17/17 11:13 [id number] 03/17/17 11:03 PMRU Outcome: Discharge Planning Identify Patient Needs yes Update Patient Family No Outcome/Goals Demonstrates Understanding of Discharge Plan Progression Toward Outcome/Goals Progressing /GI-Improve/Maintain Start: 03/14/17 21:50 Freq: DAILY Status: Active Target: Activity Type Activity Date Activity User E-Sign Co-Sign Detail Recorded Client Recorded Date Recorded By Document 03/20/17 08:00 [id number] 03/20/17 11:12 [id number] 03/20/17 08:00 PMRU Outcome: Genitourinary/ Gastrointestinal Genitourinary- Outcome/Goals Maintain/ Achieve Urinary Continence Gastrointestinal-Outcome/Goals Maintain/ Achieve Bowel Regularity in Accordance with Pt's Baseline Progression Toward Outcome/Goals - Progressing Progression Toward Outcome/Goals - GI Progressing Genitourinary- Outcome/Goals Met Maintain/ Achieve Urinary Continence Gastrointestinal-Outcome/Goals Met Maintain/ Achieve Bowel Regularity in Accordance with Pt's Baseline Mobility- Improve/Maintain Start: 03/14/17 21:50 Freq: DAILY Status: Active Target: Activity Type Activity Date Activity User E-Sign Co-Sign Detail Recorded Client Recorded Date Recorded By Document 03/19/17 12:17 [id number] 03/19/17 12:17 [id number] 03/19/17 12:17 PMRU Outcome: Mobility Physical Therapy Evaluation and Yes Treatment Activity OOB with Assistance Yes WBAT Yes Device Yes Assistance Yes Patient to be seen 5x/wk for 60-120 min/ Therex day for: Mobility Training Gait Training W/C Mobility Balance Outcome/Goals Maintain/ Achieve Baseline Mobility Status Improve Mobility Status Demonstrates Proper Use of Assistive Devices Free from Complications of Immobility Progression Toward Outcome/Goals Progressing Bed Mobility Yes: independent Transfers Yes: independent with rolling walker Gait x ft Yes: independent with rolling walker 150' Up/Down Stairs Yes: independent with 2 rails up /down 5 stairs Nutrition/Swallowing- Improve/Maintain Start: 03/14/17 21:50 Freq: DAILY Status: Active Target: Activity Type Activity Date Activity User E-Sign Co-Sign Detail Recorded Client Recorded Date Recorded By Document 03/20/17 08:00 [id number] 03/20/17 11:12 [id number] 03/20/17 08:00 PMRU Outcome: Nutrition/Swallowing Outcome/Goals Demonstrates Adequate Hydration/ Prevents Dehydration Progression Toward Outcome/Goals Progressing Outcome/Goals Met Demonstrates Adequate Hydration/ Prevents Dehydration Pain/Comfort- Improve/Maintain Start: 03/14/17 21:50 Freq: DAILY Status: Active Target: Activity Type Activity Date Activity User E-Sign Co-Sign Detail Recorded Client Recorded Date Recorded By Document 03/20/17 08:00 [id number] 03/20/17 11:12 [id number] 03/20/17 08:00 PMRU Outcome: Pain/Comfort Outcome/Goals Demonstrates Knowledge and Use of Available Comfort Measures Progression Toward Outcome/Goals Progressing Outcome/Goals Met Demonstrates Knowledge and Use of Available Comfort Measures Outcome/Goals Met Comment 1 percocet given Safety- Improve/Maintain Start: 03/14/17 21:50 Freq: DAILY Status: Active Target: Activity Type Activity Date Activity User E-Sign Co-Sign Detail Recorded Client Recorded Date Recorded By Document 03/20/17 08:00 [id number] 03/20/17 11:12 [id number] 03/20/17 08:00 PMRU Outcome: Safety Outcome/Goals Remain Free of Injury or Harm Progression Toward Outcome/Goals Progressing Outcome/Goals Met Remain Free of Injury or Harm Skin- Improve/Maintain Start: 03/14/17 21:50 Freq: DAILY Status: Active Target: Activity Type Activity Date Activity User E-Sign Co-Sign Detail Recorded Client Recorded Date Recorded By Document 03/20/17 08:00 [id number] 03/20/17 11:12 [id number] 03/20/17 08:00 PMRU Outcome: Skin Skin Risk Level Medium Skin Orders Turn/Position q2hr While in Bed Outcome/Goals Maintain/ Improve Skin Intergrity Free from Decubitus Surgical Incisions Healing Progression Toward Outcome/Goals Progressing Outcome/Goals Met Maintain/ Improve Skin Intergrity Free from Decubitus Surgical Incisions Healing Medicine Note: Length of Stay: [1 week] Anticipated Discharge Destination: Home Tentative Discharge Date: [03/27/17] Discharged to: [home]
[2017-03-20] MEDS: Warfarin TAB(*) 3 MG PO SCH (17:06)
[2017-03-20] MEDS: Gabapentin CAP(*) 100 MG PO SCH (20:53)
[2017-03-20] MEDS: Metoprolol Tartrate TAB* 50 mg PO SCH (20:53)
[2017-03-20] MEDS: Atorvastatin* 10 MG TAB PO SCH (20:53)
[2017-03-21] MEDS: Insulin LISPRO* 1 UNITS UNIT SUBCUT SCH ×3 (07:45→17:22)
[2017-03-21] MEDS: Omeprazole CAP* 20 MG PO SCH (07:46)
[2017-03-21] MEDS: glipiZIDE TAB* 5 MG PO SCH (07:46)
[2017-03-21] MEDS: Docusate CAP* 100 MG PO SCH ×2 (07:46→20:50)
[2017-03-21] MEDS: oxyCODONE/Acetamin 5/325 MG* TAB PO PRN (07:46)
[2017-03-21] MEDS: amLODIPine TAB* 5 MG PO SCH (07:46)
[2017-03-21] MEDS: Calcitriol CAP* 0.25 MCG PO SCH (07:46)
[2017-03-21] MEDS: Warfarin TAB(*) 3 MG PO SCH (17:22)
[2017-03-21] MEDS: Atorvastatin* 10 MG TAB PO SCH (20:50)
[2017-03-21] MEDS: Gabapentin CAP(*) 100 MG PO SCH (20:51)
[2017-03-21] MEDS: Metoprolol Tartrate TAB* 50 mg PO SCH (20:51)
[2017-03-22] MEDS: oxyCODONE/Acetamin 5/325 MG* TAB PO PRN ×2 (01:29→08:22)
[2017-03-22] MEDS: amLODIPine TAB* 5 MG PO SCH (08:23)
[2017-03-22] MEDS: Omeprazole CAP* 20 MG PO SCH (08:23)
[2017-03-22] MEDS: Docusate CAP* 100 MG PO SCH ×2 (08:23→21:05)
[2017-03-22] MEDS: Calcitriol CAP* 0.25 MCG PO SCH (08:23)
[2017-03-22] MEDS: Insulin LISPRO* 1 UNITS UNIT SUBCUT SCH ×3 (08:23→17:11)
[2017-03-22] MEDS: glipiZIDE TAB* 5 MG PO SCH (08:23)
[2017-03-22] MEDS: Ondansetron ODT TAB* 4 MG SL PRN (10:13)
[2017-03-22] MEDS ORDERED: Hydrocortisone 1% CREAM* 30 GM TUBE TOPICAL PRN (14:36)
[2017-03-22] MEDS: Warfarin TAB(*) 3 MG PO SCH (17:12)
[2017-03-22] MEDS: Atorvastatin* 10 MG TAB PO SCH (21:04)
[2017-03-22] MEDS: Metoprolol Tartrate TAB* 50 mg PO SCH (21:05)
[2017-03-22] MEDS: Gabapentin CAP(*) 100 MG PO SCH (21:05)
[2017-03-23 06:53] LABS: Hematocrit 22 % (35-47); Hemoglobin 7.2 g/dl (12.0-16.0); Mean Corpuscular HGB Conc 33 g/dl (31-36); Mean Corpuscular Hemoglobin 32 pg (27-31); Mean Corpuscular Volume 98 fL (80-97); Mean Platelet Volume 7 um3 (7.4-10.4); Red Blood Count 2.25 10^6/ul (4.0-5.4); Red Cell Distribution Width 15 % (10.5-15); White Blood Count 5.4 10^3/ul (3.5-10.8)
[2017-03-23 07:09] LABS: Albumin 2.8 g/dL (3.2-5.2); BUN/Creatinine Ratio 10.9 (8-20); Calcium 8.5 mg/dL (8.6-10.3); EGFR African American 13.3 (>60); EGFR Non-African American 10.3 (>60); Potassium 4.1 mmol/L (3.5-5.0); Total Bilirubin 0.3 mg/dL (0.2-1.0); Total Protein 5.8 g/dL (6.4-8.9)
[2017-03-23] MEDS: Insulin LISPRO* 1 UNITS UNIT SUBCUT SCH ×3 (09:05→17:38)
[2017-03-23] MEDS: glipiZIDE TAB* 5 MG PO SCH (09:06)
[2017-03-23] MEDS: Acetaminophen TAB* 325 MG PO PRN (09:07)
[2017-03-23] MEDS: amLODIPine TAB* 5 MG PO SCH (09:07)
[2017-03-23] MEDS: Calcitriol CAP* 0.25 MCG PO SCH (09:07)
[2017-03-23] MEDS: Docusate CAP* 100 MG PO SCH ×2 (09:07→20:54)
[2017-03-23] MEDS: Omeprazole CAP* 20 MG PO SCH (09:07)
[2017-03-23] MEDS ORDERED: Darbepoetin Alfa* 100 MCG/0.5 ML SYRINGE SUBCUT ONE ×2 (10:30→16:00)
[2017-03-23] MEDS: Ondansetron ODT TAB* 4 MG SL PRN (13:33)
[2017-03-23] MEDS: Warfarin TAB(*) 3 MG PO SCH ×2 (17:38→18:29)
[2017-03-23] MEDS: Gabapentin CAP(*) 100 MG PO SCH (20:54)
[2017-03-23] MEDS: Atorvastatin* 10 MG TAB PO SCH (20:54)
[2017-03-23] MEDS: Metoprolol Tartrate TAB* 50 mg PO SCH (21:25)
[2017-03-23] MEDS: Hydrocortisone 1% CREAM* 30 GM TUBE TOPICAL SCH (21:26)
[2017-03-24] MEDS: Insulin LISPRO* 1 UNITS UNIT SUBCUT SCH ×3 (08:04→17:04)
[2017-03-24] MEDS: Omeprazole CAP* 20 MG PO SCH (08:04)
[2017-03-24] MEDS: amLODIPine TAB* 5 MG PO SCH (08:45)
[2017-03-24] MEDS: glipiZIDE TAB* 5 MG PO SCH (08:45)
[2017-03-24] MEDS: Docusate CAP* 100 MG PO SCH ×2 (08:45→20:45)
[2017-03-24] MEDS: Calcitriol CAP* 0.25 MCG PO SCH (08:45)
[2017-03-24] MEDS: Hydrocortisone 1% CREAM* 30 GM TUBE TOPICAL SCH ×2 (11:42→20:46)
[2017-03-24] MEDS: Warfarin TAB(*) 3 MG PO SCH (17:05)
[2017-03-24] MEDS: Gabapentin CAP(*) 100 MG PO SCH (20:45)
[2017-03-24] MEDS: Atorvastatin* 10 MG TAB PO SCH (20:46)
[2017-03-24] MEDS: Metoprolol Tartrate TAB* 50 mg PO SCH (20:46)
[2017-03-25] MEDS: Insulin LISPRO* 1 UNITS UNIT SUBCUT SCH ×3 (08:22→16:33)
[2017-03-25] MEDS: Omeprazole CAP* 20 MG PO SCH (08:22)
[2017-03-25] MEDS: glipiZIDE TAB* 5 MG PO SCH (08:43)
[2017-03-25] MEDS: Docusate CAP* 100 MG PO SCH ×2 (08:43→21:45)
[2017-03-25] MEDS: Calcitriol CAP* 0.25 MCG PO SCH (08:43)
[2017-03-25] MEDS: Hydrocortisone 1% CREAM* 30 GM TUBE TOPICAL SCH ×2 (11:46→21:45)
[2017-03-25] MEDS: Warfarin TAB(*) 3 MG PO SCH (16:48)
[2017-03-25] MEDS: Metoprolol Tartrate TAB* 50 mg PO SCH (21:14)
[2017-03-25] MEDS: Gabapentin CAP(*) 100 MG PO SCH (21:14)
[2017-03-25] MEDS: Atorvastatin* 10 MG TAB PO SCH (21:45)
[2017-03-26 07:49] LABS: Hematocrit 24 % (35-47); Hemoglobin 7.7 g/dl (12.0-16.0); Mean Corpuscular HGB Conc 33 g/dl (31-36); Mean Corpuscular Hemoglobin 32 pg (27-31); Mean Corpuscular Volume 97 fL (80-97); Mean Platelet Volume 7 um3 (7.4-10.4); Red Blood Count 2.42 10^6/ul (4.0-5.4); Red Cell Distribution Width 15 % (10.5-15); White Blood Count 5.6 10^3/ul (3.5-10.8)
[2017-03-26] MEDS: Insulin LISPRO* 1 UNITS UNIT SUBCUT SCH ×3 (08:01→17:32)
[2017-03-26] MEDS: Docusate CAP* 100 MG PO SCH ×2 (08:02→21:10)
[2017-03-26] MEDS: Omeprazole CAP* 20 MG PO SCH (08:02)
[2017-03-26] MEDS: Hydrocortisone 1% CREAM* 30 GM TUBE TOPICAL SCH ×3 (08:02→22:26)
[2017-03-26] MEDS: glipiZIDE TAB* 5 MG PO SCH (08:02)
[2017-03-26] MEDS: Calcitriol CAP* 0.25 MCG PO SCH (08:02)
[2017-03-26] MEDS: Warfarin TAB(*) 3 MG PO SCH (17:32)
[2017-03-26] MEDS: Gabapentin CAP(*) 100 MG PO SCH (21:10)
[2017-03-26] MEDS: Atorvastatin* 10 MG TAB PO SCH (21:10)
[2017-03-26] MEDS: Metoprolol Tartrate TAB* 50 mg PO SCH (21:11)
[2017-03-27 05:57] VITALS: BP 133/56
[2017-03-27] MEDS: Insulin LISPRO* 1 UNITS UNIT SUBCUT SCH (08:08)
[2017-03-27] MEDS: glipiZIDE TAB* 5 MG PO SCH (08:08)
[2017-03-27] MEDS: Calcitriol CAP* 0.25 MCG PO SCH (08:08)
[2017-03-27] MEDS: Docusate CAP* 100 MG PO SCH (08:09)
[2017-03-27] MEDS: Omeprazole CAP* 20 MG PO SCH (08:09)
[2017-03-27] MEDS: Hydrocortisone 1% CREAM* 30 GM TUBE TOPICAL SCH (08:11)
--- NOTE | 2017-03-28 05:47 | DS ---
CC: Dr. Mike Mcgee * DISCHARGE SUMMARY: DATE OF ADMISSION: 03/14/17 DATE OF DISCHARGE: 03/27/17 DISCHARGE DIAGNOSES: 1. 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 2. End-stage renal disease. 3. Hypertension. 4. Diabetes. 5. Hyperlipidemia. HISTORY OF ILLNESS AND HOSPITAL COURSE: For complete history of the events leading up to her rehab stay, please see the history and physical dictated by me on 03/14/17. While on the rehab unit, the patient had a temperature spike of 101 degrees shortly after admission. She had no abdominal pain. Chest x- ray was negative. Her dialysis fluid was clear. The patient was noted to be anemic on the rehab stay, but did not get a transfusion. She had an allergy to EPOGEN in the past. The patient was maintained on Coumadin for DVT prophylaxis. The patient's wound healed well. Her stitches were removed without difficulty. She did receive a dose of Aranesp at Dr. Parmar's discretion. The patient was seen by both Physical and Occupational Therapy and made good gains with both disciplines. With physical therapy at the time of admission, the patient required mod assist to transfer. She was able to ambulate with contact guard about 30 feet. With occupational therapy on admission, the patient required max assist for lower body dressing, min assist for upper body dressing, toileting was moderate amount of assistance. By the time of discharge, the patient was independent ambulating. She was able to ambulate 150 feet. She can go up and down 5 steps. She was independent with her activities of daily living. The patient was discharged home 03/27/17. DISCHARGE DIET: Renal. DISCHARGE MEDICATIONS: Included: 1. Rocaltrol 0.25 mcg daily. 2. Gabapentin 100 mg at 10 p.m. 3. Lopressor 50 mg at 10 p.m. 4. Coumadin 3 mg daily or as directed. 5. Oxycodone 5 to 10 mg every 4 hours as needed. 6. Glipizide 10 mg daily. 7. Amlodipine 5 mg daily. 8. Protonix 40 mg daily. 9. Zocor 20 mg daily. SERVICES AFTER DISCHARGE: Through [facility]. She will have [facility], physical therapy, and a home health aide. Follow up with her primary care doctor, Dr. Mike Mcgee, in 2 to 3 weeks. She will also follow up with Dr. Demetri Reeves, her orthopedic surgeon, in 10 days. [id number]/[facility] #: [id number] [facility] HOSPITALJulius
== END 2017-03-27 11:00 | disposition home health service (06) | DRG 559 ==
LOC: PMRU 17:24
PROVIDERS: ADMIT Physical Medicine & Rehabilitation; ATTEND Physical Medicine & Rehabilitation
PROC: F07Z5ZZ Bed Mobility Treatment (ICD-10-PCS; principal; 2017-03-14)
PROC: F07Z9ZZ Gait Training/Functional Ambulation Treatment (ICD-10-PCS; 2017-03-14)
PROC: F07Z8ZZ Transfer Training Treatment (ICD-10-PCS; 2017-03-14)
PROC: F08Z0ZZ Bathing/Showering Techniques Treatment (ICD-10-PCS; 2017-03-14)
PROC: F08Z1ZZ Dressing Techniques Treatment (ICD-10-PCS; 2017-03-14)
PROC: F08Z3ZZ Feeding/Eating Treatment (ICD-10-PCS; 2017-03-14)
PROC: 3E1M39Z Irrigation of Peritoneal Cavity using Dialysate, Percutaneous Approach (ICD-10-PCS; 2017-03-14)
DX: Z47.1 Aftercare following joint replacement surgery (principal); N18.6 End stage renal disease; E11.22 Type 2 diabetes mellitus with diabetic chronic kidney disease; I12.0 Hypertensive chronic kidney disease with stage 5 chronic kidney disease or end stage renal disease; D62 Acute posthemorrhagic anemia; Z96.642 Presence of left artificial hip joint; E78.5 Hyperlipidemia, unspecified; R50.9 Fever, unspecified; D63.1 Anemia in chronic kidney disease; Z99.2 Dependence on renal dialysis; Z79.84 Long term (current) use of oral hypoglycemic drugs; Z79.01 Long term (current) use of anticoagulants; Z79.891 Long term (current) use of opiate analgesic; Z79.899 Other long term (current) drug therapy
CPT/HCPCS: 36415; 71020; 80048; 80053; 81003; 81015; 83735; 84100; 84484; 85025; 85610; 87040; 87086; 90945; A9270-GY; G0257; J0881

== ENCOUNTER 2017-11-29 14:40 | Inpatient (IN) | payer MEDICARE ==
--- NOTE | 2017-11-29 15:05 | ED ---
GI/ HPI - HPI Summary HPI Summary: 87-year-old female who is on dialysis presents with constipation for the past week. She has not had a bowel movement past week. States yesterday she tried and was just mucus. She states it was clear mucus. She denies any rectal bleeding. She denies any nausea or vomiting. She admits to lower abdominal pain. She has had her gallbladder and appendix and uterus removed. She denies any fevers. She denies any chest pain or shortness breath. She denies any pain with urination. She denies any flank pain. She tried an enema last night without relief. She has never had this before. She did have bowel obstruction many years ago. She does dialysis every night peritoneal. - History of Current Complaint Chief Complaint: EDGeneral Time Seen by Provider: 11/29/17 14:50 Stated Complaint: CONSTIPATED Pain Intensity: 0 - Additional Pertinent History Primary Care Physician: JOE - Allergy/Home Medications Allergies/Adverse Reactions: Allergies Allergy/AdvReac Type Severity Reaction Status Date / Time Sulfa (Sulfonamide Allergy Severe See Comment Verified 11/29/17 15:06 Antibiotics) sulfamethoxazole Allergy Severe See Comment Verified 11/29/17 15:06 [From Bactrim] trimethoprim [From Bactrim] Allergy Severe See Comment Verified 11/29/17 15:06 lactose Allergy Vomiting Verified 11/29/17 15:06 shellfish derived Allergy Vomiting Verified 11/29/17 15:06 MILK AdvReac Severe ECZEMA, Uncoded 03/13/17 07:56 HEADACHE SCALLOPS AdvReac Severe VIOLENT Uncoded 03/13/17 07:56 VOMITING Home Medications: Home Medications Acetaminophen TAB* [Tylenol TAB*] 650 mg PO Q4H PRN 11/29/17 [History Confirmed 11/29/17] Calcium Acetate CAP* [Phoslo CAP*] 1 cap PO TID AC 11/29/17 [History Confirmed 11/29/17] Docusate Sodium [Stool Softener] 100 mg PO BID 11/29/17 [History Confirmed 11/29] Gabapentin CAP(*) [Neurontin 100 mg CAP(*)] 100 mg PO TID 11/29/17 [History Confirmed 11/29/17] Methadone TAB* [Dolophine TAB*] 5 mg PO Q6H PRN 11/29/17 [History Confirmed 08/06] Multivitamins/Minerals TAB* [Theragran/minerals TAB*] 1 tab PO DAILY 11/29/17 [ History Confirmed 11/29/17] Pantoprazole TAB (NF) [Protonix TAB (NF)] 40 mg PO DAILY 11/29/17 [History Confirmed 11/29/17] Simvastatin TAB(NF) [Zocor(NF)] 20 mg PO DAILY 11/29/17 [History Confirmed 11/29] glipiZIDE TAB* [Glucotrol TAB*] 10 mg PO DAILY 11/29/17 [History Confirmed 11/29] PMH/Surg Hx/FS Hx/Imm Hx Endocrine/Hematology History: Reports: Hx Diabetes - type 2, Hx Anemia Cardiovascular History: Reports: Hx Hypertension, Hx Peripheral Vascular Disease , Other Cardiovascular Problems/Disorders - HIGH CHOLESTEROL GI History: Reports: Hx Obstructive Bowel, Other GI Disorders - urinary calculi Comment Only: Hx Gall Bladder Disease - gall bladder removed History: Reports: Hx Kidney Stones - IN PAST Comment Only: Other Problems/Disorders - chronic kidney disease Musculoskeletal History: Reports: Hx Arthritis, Hx Gout, Hx Osteoporosis Sensory History: Reports: Hx Contacts or Glasses Denies: Hx Hearing Aid Opthamlomology History: Reports: Hx Contacts or Glasses Neurological History: Reports: Hx Nerve Disease - diabetic neuropathy, Other Neuro Impairments/Disorders - hx of Rodriguez's Palsy - Cancer History Hx Chemotherapy: No - Surgical History Surgery Procedure, Year, and Place: HYSTERECTOMY. GALL BLADDER AND APPENDECTOMY. BLADDER SURGERY. CATARACT SURGERY WITH LENS IMPLANT Hx Anesthesia Reactions: No Infectious Disease History: No Infectious Disease History: Denies: Traveled Outside the [place] in Last 30 Days - Family History Known Family History: Positive: Unknown - Social History Alcohol Use: None Substance Use Type: Reports: None Smoking Status (MU): Never Smoked Tobacco Review of Systems Negative: Fever Negative: Chest Pain Negative: Shortness Of Breath Positive: Abdominal Pain, Other - constipation. Negative: Vomiting, Nausea All Other Systems Reviewed And Are Negative: Yes Physical Exam Triage Information Reviewed: Yes Vital Signs On Initial Exam: Initial Vitals Temp Pulse Resp BP Pulse Ox 97.9 F 80 20 108/61 100 11/29/17 14:42 11/29/17 14:42 11/29/17 14:42 11/29/17 14:42 11/29/17 14:42 Vital Signs Reviewed: Yes Appearance: Positive: Well-Appearing Skin: Positive: Warm, Dry Head/Face: Positive: Normal Head/Face Inspection Eyes: Positive: Normal, Conjunctiva Clear Respiratory/Lung Sounds: Positive: Clear to Auscultation, Breath Sounds Present Cardiovascular: Positive: Normal, RRR Abdomen Description: Positive: Soft, Other: - tenderness lower quadrant, no rebound, no stool on rectal exam Bowel Sounds: Positive: Present Musculoskeletal: Positive: Normal Neurological: Positive: Normal Psychiatric: Positive: Normal Diagnostics - Vital Signs Vital Signs Temp Pulse Resp BP Pulse Ox 11/29/17 14:42 97.9 F 80 20 108/61 100 - Laboratory Result Diagrams: 11/29/17 15:25 11/29/17 15:25 Lab Statement: Any lab studies that have been ordered have been reviewed, and results considered in the medical decision making process. GIGU Course/Dx - Course Course Of Treatment: 87-year-old female who is on dialysis presents with constipation for the past week. She has not had a bowel movement past week. States yesterday she tried and was just mucus. She states it was clear mucus. She denies any rectal bleeding. She denies any nausea or vomiting. She admits to lower abdominal pain. She has had her gallbladder and appendix and uterus removed. She denies any fevers. She denies any chest pain or shortness breath. She denies any pain with urination. She denies any flank pain. She tried an enema last night without relief. She has never had this before. She did have bowel obstruction many years ago. She does dialysis every night. On exam bilateral lower quadrant pain. No stool on rectal exam. spoke with dr neo rivera. says not to work about renal function as get dialysis nightly. no fleet enemas can do soap suds. will get CT to make sure no obstruction or ileus. can not do CT with due to kidney function. patient signed out to Mitch pending CT for dispo. - Diagnoses Differential Diagnoses - Female: Bowel Obstruction, Constipation, Other - vovulus Provider Diagnoses: Abdominal pain, Constipation, Chronic renal disease Discharge - Sign-Out/Discharge Documenting (check all that apply): Sign-Out Patient Signing out patient TO: Mitch Beltre - Discharge Plan Referrals: Mike Mcgee, [Primary Care Provider] -
[2017-11-29 16:23] LABS: EGFR Non-African American 3.4 (>60)
--- NOTE | 2017-11-29 16:48 | RAD ---
Indication: Constipation for one week. Post appendectomy, colectomy, bowel repair. History of urolithiasis. Comparison: March 12, 2017 pelvis radiograph. Technique: Supine and upright views of the abdomen. Report: No radiographic evidence for free air. Unremarkable bowel gas pattern. Large volume of formed appearing stool throughout the colon without suggestion of significant rectal distention. No dilated bowel loops evident. RIGHT upper quadrant and RIGHT lower quadrant surgical clips. Coiled catheter at the pelvis likely a peritoneal dialysis catheter is unchanged. LEFT hip prosthesis. Advanced osteoarthritis of the RIGHT hip. Unremarkable soft tissue contours. IMPRESSION: Large volume of formed appearing stool throughout the colon without suggestion of significant rectal distention. No dilated bowel loops to indicate bowel obstruction.
[2017-11-29 17:05] LABS: ABS Basophils 0 10^3/ul (0-0.2); ABS Eosinophils 0.2 10^3/ul (0-0.6); ABS Lymphocytes 0.7 10^3/ul (1.0-4.8); ABS Monocytes 0.4 10^3/ul (0-0.8); ABS Neutrophils 6.5 10^3/ul (1.5-7.7); ABS Nucleated RBC 0 10^3/ul; Eosinophil % 2.2 % (0-6); Hematocrit 23 % (35-47); Hemoglobin 7.8 g/dl (12.0-16.0); Lymphocyte % 9.3 % (25-47); Mean Corpuscular HGB Conc 34 g/dl (31-36); Mean Corpuscular Hemoglobin 37 pg (27-31); Mean Corpuscular Volume 109 fL (80-97); Mean Platelet Volume 6.7 um3 (7.4-10.4); Nucleated Red Blood Cells % 0; Platelet Count 134 10^3/ul (150-450); Red Blood Count 2.09 10^6/ul (4.0-5.4); Red Cell Distribution Width 15 % (10.5-15); White Blood Count 7.8 10^3/ul (3.5-10.8)
--- NOTE | 2017-11-29 18:26 | RAD ---
INDICATION: Lower abdominal pain. Constipation. Post cholecystectomy, appendectomy, hysterectomy. COMPARISON: November 29, 2017 abdomen radiograph. TECHNIQUE: Multidetector CT images were obtained from the lung bases to the ischial tuberosities. Evaluation of the viscera is limited without IV contrast. Multiplanar reformation. REPORT: Arms down position results in beam hardening artifact. Mild interstitial fibrosis and bronchiectasis at the lung bases. Cardiomegaly. Post cholecystectomy. Negative for biliary dilatation. Unremarkable liver, pancreas, spleen. No CT abnormality of the upper GI or small bowel. Post appendectomy. Large volume of stool present throughout the colon. Severe diverticulosis of the sigmoid colon. Mild mural thickening and perienteric inflammatory change at the sigmoid colon. Conspicuity is limited due to artifact from the LEFT hip prosthesis. The rectum is largely decompressed. Small volume of free pelvic fluid along the LEFT pelvic sidewall. Negative for free air. Fat-containing LEFT femoral hernia without inflammatory change. Small fat-containing RIGHT indirect inguinal hernia without inflammatory change. Normal adrenal glands. Advanced cortical atrophy of the RIGHT kidney. Nonobstructing 0.8 cm lower pole RIGHT kidney calyceal stone. Moderately severe cortical atrophy of the LEFT kidney. 6.3 cm simple cyst at the upper pole of the LEFT kidney. Negative for hydronephrosis. No gross abnormality along the course of the ureters however conspicuity of the distal LEFT ureter is limited due to artifact from the LEFT hip prosthesis. Largely decompressed urinary bladder. Negative for lymphadenopathy. Mild atherosclerotic plaque of normal diameter abdominal aorta and iliac arteries. Physiologic partial distention of the IVC. Polyarticular degenerative arthropathy. Grade 1 degenerative L4-L5 anterolisthesis. Degenerative spondylosis and facet joint osteoarthritis results in moderate L4-L5 central canal stenosis. Negative for suspicious focal osseous lesions. IMPRESSION: The constellation of findings is most consistent with acute diverticulitis. Small volume of free fluid along the LEFT pelvic sidewall. No perienteric abscess evident. Follow-up after therapy warranted to assess for resolution.
[2017-11-29] MEDS ORDERED: metroNIDAZOLE IV 500 MG/100ML* 500 MG/100 ML BAG IVPB ONE (19:55)
[2017-11-29] MEDS ORDERED: Ciprofloxacin 400MG IVPREMIX(* 400 MG/200 ML BAG IVPB ONE (20:03)
[2017-11-29] MEDS ORDERED: Methadone TAB* 5 MG PO PRN (21:53)
[2017-11-29] MEDS ORDERED: PEG 3000 GI LAVAGE* 1 GALLON PO ONE (21:54)
[2017-11-29] MEDS ORDERED: metroNIDAZOLE IV 500 MG/100ML* 500 MG/100 ML BAG IVPB SCH (22:00)
[2017-11-29] MEDS ORDERED: Dextrose 50% Syringe 50 ML* 25 GM/50 ML SYRINGE IV PUSH PRN (22:18)
--- NOTE | 2017-11-29 23:48 | HP ---
CC: Dr. Bright Mcgee; Pk Parmar MD * ADMISSION HISTORY AND PHYSICAL: DATE OF ADMISSION: 11/29/17 PRIMARY CARE PROVIDER: Dr. Bright Mcgee. MY ATTENDING WHILE IN THE HOSPITAL: Cole Davenport MD * (DICTATED BY [facility]) COBOL PROGRAMMER: Pk Parmar MD CHIEF COMPLAINT: Abdominal pain and constipation x1 week. HISTORY OF PRESENT ILLNESS: Ms. Hercules is an 87-year-old female with past medical history significant for ESRD, diabetes mellitus, hypertension, small bowel obstruction, intussusception and multiple intraabdominal surgeries, who presents 1.5 weeks after she was started on phosphate binders and had a change in her peritoneal dialysis regimen with constipation, producing only small amounts of mucus at that time, not obstipated, with significant 7/10 sharp pain in her lower abdomen. The patient has never had anything like this before. Patient has had a history of bowel obstruction, this is not like that. Patient does not have any nausea, vomiting, fevers, chills. Patient used suppository and did not have help. This patient is on chronic therapy with stool softeners, did not try anything else to stimulate bowel movement. The patient has no chest pain, shortness of breath. Patient does not make urine. Patient did her dialysis last night without complications. Patient has increased swelling in her legs. Patient has stable weight. Patient feels a little tired, otherwise has no other symptoms. Patient's hypertension is well controlled. Patient's diabetes is well controlled on glipizide occasionally with episodes of hypoglycemia. Patient came in to the emergency department, had a CT scan of her abdomen and pelvis, which showed diverticulitis of the sigmoid colon. Patient still did not have a bowel movement while in the emergency department. Dr. Pamrar was contacted by the emergency department physician and he recommended GoLYTELY and did not worry about her renal function as she gets dialysis nightly. PAST MEDICAL HISTORY: End-stage renal disease; diabetes mellitus, controlled with oral medications; osteoarthritis; hypertension, currently controlled without medication; hyperlipidemia; as well as small bowel obstruction and intussusception. PAST SURGICAL HISTORY: Small bowel obstruction repair with lysis of adhesions, total hip replacement, dialysis catheter placement, hysterectomy, cholecystectomy, appendectomy. MEDICATIONS ON ADMISSION: 1. Multivitamin 1 tab p.o. daily. 2. Tylenol 650 mg p.o. q.4 hours as needed. 3. Methadone 5 mg p.o. q.6 hours as needed. 4. Simvastatin 20 mg p.o. daily. 5. Gabapentin 100 mg p.o. t.i.d. 6. Docusate 100 mg p.o. b.i.d. 7. Calcium acetate 1 cap p.o. t.i.d. a.c. 8. Glipizide 10 mg p.o. daily. 9. Pantoprazole 40 mg p.o. daily. ALLERGIES: SULFA, BACTRIM, MILK, SCALLOPS. FAMILY HISTORY: The patient's father of renal failure and dialysis. The patient's mother of lymphoma. The patient has a sister, who of kidney cancer. Another sister of diabetes and had a CABG. Another sister , who has diabetes and blindness. SOCIAL HISTORY: The patient never smoked. Rarely drank alcohol, has no illicit drugs. 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 The patient's last year. Patient has 3 children, all of whom are alive and well. REVIEW OF SYSTEMS: A 14-point review of systems was reviewed and is negative except as above stated in the HPI. PHYSICAL EXAMINATION GENERAL: Patient is an 87-year-old female who appears stated age and is sitting comfortably in bed, in no acute distress. VITAL SIGNS: Temperature 98.4, heart rate 81, respiratory rate 16, oxygen saturation 90% on room air, blood pressure 121/54. HEENT: Head: Normocephalic, atraumatic. Sclerae anicteric. No conjunctival injection. Nasal mucosa moist. Oral mucosa moist. No pharyngeal erythema, discharge, or exudate. NECK: Supple, nontender. No lymphadenopathy. No carotid bruits auscultated. RESPIRATORY: Clear to auscultation bilaterally. No wheezes, rales, or rhonchi. Good air exchange bilaterally. CARDIAC: Regular rate and rhythm. No clicks, murmurs, gallops, or rubs. Pulses 2+ in the bilateral dorsalis pedis, posterior tibialis, and radial areas. 1+ pitting edema in bilateral lower extremities with stockings on. No bilateral calf tenderness. Patient had support hose on. ABDOMEN: Soft, tenderness to palpation over the bilateral lower quadrants with severe tenderness to palpation with no rebound or guarding in the left lower quadrant around the dialysis catheter. Dialysis catheter site shows no signs of inflammation. NEUROLOGIC: Cranial nerves II through XII intact. Alert and oriented x3. No focal deficits. PSYCHIATRIC: Pleasant and cooperative. GENITOURINARY: No suprapubic or CVA tenderness. SKIN: Weeping blisters on the bilateral lower extremities, peritoneal dialysis catheter. No other rash. LABORATORY DATA: WBC count 7.8, hemoglobin 7.8, MCV 109, MCH 37, platelet count 134,000. Sodium 137, potassium 4.6, chloride 89, anion gap 17, BUN 51, creatinine 10.66, glucose 109, calcium 8.1, AST 12, ALT 10, total bilirubin 0.4 , alkaline phosphatase 66, CRP 51.88, total protein 6.9, albumin 3.7, globulin 3.2, lipase 63. STUDIES DONE WHILE IN THE HOSPITAL: Abdomen and pelvis CT read as the constellation of findings most consistent with acute diverticulitis, small volume of free fluid along the left pelvic sidewall. No perienteric abscess evident. Follow up after therapy to assess for resolution. Abdomen x-ray read as large volume of formed appearing stool throughout the colon, mild suggestion of significant vesical distention. No dilated loops to indicate bowel obstruction. ASSESSMENT AND PLAN/IMPRESSION: Ms. Hercules is an 87-year-old female with past medical history significant for end-stage renal disease, diabetes mellitus and hypertension as well as small bowel obstruction, who presents with constipation without a bowel movement for 9 days as well as diverticulitis on the CT scan with no systemic symptoms, but moderate abdominal pain on exam. Due to the patient's constellation of findings of end-stage renal disease and general fragility, the patient will be admitted to the hospital for IV antibiotics, bowel preparation and close monitoring. 1. Mild diverticulitis. Patient has significant diverticulosis of her sigmoid colon with CT evidence of diverticulitis. Patient has no white blood cell count , tachycardia. Patient has moderate abdominal pain. No fevers, no hypotension. Patient will be treated with ciprofloxacin and Flagyl. Patient is on methadone. Patient is also on peritoneal dialysis. We will get an EKG to assess for QT duration and if prolonged, we will change the prophylaxis and Flagyl to a different antibiotic tomorrow. The patient will be on clear liquid diet. 2. End-stage renal disease. The patient will continue with peritoneal dialysis after she has had bowel movements. This was discussed with Dr. Parmar , the patient's cab station attendant, and he thinks that the combination of peritoneal dialysis and GoLYTELY bowel prep would be incredibly painful if simultaneous, so peritoneal dialysis will be deferred. The patient has no significant electrolyte abnormalities at the moment. We will monitor these. The patient's creatinine is significantly above baseline. This has been the trend with the patient's treatment becoming less and less effective. Follow up outpatient with Dr. Parmar. 3. Constipation. The patient will be given GoLYTELY. Patient has used suppository and stool softeners without resolution. Patient has a history of small bowel obstruction, but there is no evidence of this on the CT scan. This is likely due to the patient being started on phosphate binders. 4. Hypertension. The patient is currently off vacation. We will monitor. 5. Diabetes mellitus. Hold the patient's glipizide due to a clear liquid diet. We will start her on sliding scale insulin and monitoring a.c. and h.s. 6. FEN. Patient will be on a clear liquid diet. Patient will not receive fluids due to dialysis. 7. Code status. Patient would like to be a full code. Patient's surrogate decision maker is her daughter, Mary Ellen Benedict, in [place]. Her numbers are [phone] and [phone]. 8. Anemia. This is likely related to the patient's chronic kidney disease and stable. 9. Disposition. The patient is admitted inpatient on Medical. 10. DVT prophylaxis. The patient will have heparin subcu and KE stockings. TIME SPENT: Approximately 60 minutes was spent on this admission, 30 of which was spent [id number] with the patient obtaining history and physical and discussing treatment plan. [facility] [id number]/[facility] #: [id number] CINTIA
--- NOTE | 2017-11-30 02:47 | PN ---
Progress Note - Progress Note Date of Service: 11/29/17 Note: Pt. signed out by SHWETHA Juarez for CT read and disposition. CT abd/pelvis per radiology: IMPRESSION: Large volume of formed appearing stool throughout the colon without suggestion of significant rectal distention. No dilated bowel loops to indicate bowel obstruction. Case discussed with Dr. Boyer. Plan will be to admit pt. for IV antibiotics given her extensive past medical history. Results were discussed with pt. and family who agree with admission. Cipro and flagyl were ordered. I spoke with hospitalist, Dr. Valles, who has accepted pt. to his service.
[2017-11-30 06:20] LABS: ABS Basophils 0 10^3/ul (0-0.2); ABS Eosinophils 0.2 10^3/ul (0-0.6); ABS Lymphocytes 0.6 10^3/ul (1.0-4.8); ABS Monocytes 0.5 10^3/ul (0-0.8); ABS Neutrophils 5.5 10^3/ul (1.5-7.7); ABS Nucleated RBC 0 10^3/ul; Eosinophil % 2.3 % (0-6); Hematocrit 22 % (35-47); Hemoglobin 7.8 g/dl (12.0-16.0); Lymphocyte % 9.4 % (25-47); Mean Corpuscular HGB Conc 36 g/dl (31-36); Mean Corpuscular Hemoglobin 39 pg (27-31); Mean Corpuscular Volume 108 fL (80-97); Mean Platelet Volume 6.6 um3 (7.4-10.4); Nucleated Red Blood Cells % 0; Platelet Count 122 10^3/ul (150-450); Red Blood Count 2.02 10^6/ul (4.0-5.4); Red Cell Distribution Width 15 % (10.5-15); White Blood Count 6.7 10^3/ul (3.5-10.8)
[2017-11-30 06:25] LABS: EGFR Non-African American 3.4 (>60)
[2017-11-30] MEDS: Multivitamins/Minerals TAB PO SCH (07:48)
[2017-11-30] MEDS: Docusate CAP* 100 MG PO SCH ×2 (07:49→22:21)
[2017-11-30] MEDS: Atorvastatin* 10 MG TAB PO SCH (07:49)
[2017-11-30] MEDS: Gabapentin CAP(*) 100 MG PO SCH ×3 (07:49→22:20)
[2017-11-30] MEDS: Calcium Acetate CAP* 667 MG PO SCH ×3 (07:50→17:54)
[2017-11-30] MEDS: metroNIDAZOLE IV 500 MG/100ML* 500 MG/100 ML BAG IVPB SCH ×3 (07:52→18:42)
[2017-11-30] MEDS: CMCS: Pantoprazole TAB (NF) 40 MG TAB PO SCH (08:03)
[2017-11-30] MEDS: Insulin LISPRO* 1 UNITS UNIT SUBCUT SCH ×3 (08:05→18:07)
--- NOTE | 2017-11-30 11:36 | PN ---
Subjective Date of Service: 11/30/17 Interval History: Patient seen and examined. Tolerating clears. No n/v. Had some diarrhea, no formed stool. c/o diffuse abdominal pains. Denies SOB, no chest pain, no fever or chills. Objective Active Medications: Acetaminophen (Tylenol Tab*) 650 mg PO Q6H PRN PRN Reason: FEVER/PAIN Atorvastatin Calcium (Lipitor*) 10 mg PO DAILY [facility] Last Admin: 11/30/17 07:49 Dose: 10 mg Calcium Acetate (Phoslo Cap*) [address] [facility] Last Admin: 11/30/17 07:50 Dose: Not Given Dextrose (D50w Syringe 50 Ml*) 12.5 gm IV PUSH .FOR FS < 60 - SS PRN PRN Reason: FS < 60 Docusate Sodium (Colace Cap*) 100 mg PO BID [facility] Last Admin: 11/30/17 07:49 Dose: 100 mg Gabapentin (Neurontin Cap(*)) 100 mg PO TID [facility] Last Admin: 11/30/17 07:49 Dose: 100 mg Ciprofloxacin/Dextrose (Cipro 400 Mg Ivpremix(*)) 400 mg in 200 mls @ 200 mls/ hr IVPB Q24H [facility] Metronidazole/Sodium Chloride (Flagyl 500 Mg Ivpb*) 500 mg in 100 mls @ 100 mls /hr IVPB Q8H [facility] Last Admin: 11/30/17 07:52 Dose: 100 mls/hr Insulin Human Lispro (Humalog*) [address] [facility] PRN Reason: Protocol Last Admin: 11/30/17 08:05 Dose: Not Given Methadone HCl (Dolophine Tab*) 5 mg PO Q6H PRN PRN Reason: PAIN Multivitamins/Minerals (Theragran/Minerals Tab*) 1 tab PO DAILY [facility] Last Admin: 11/30/17 07:48 Dose: 1 tab Ondansetron HCl (Zofran Inj*) 4 mg IV Q6H PRN PRN Reason: NAUSEA Pantoprazole Sodium (Protonix Tab (Nf)) 40 mg PO DAILY [facility] Last Admin: 11/30/17 08:03 Dose: 40 mg Vital Signs - 8 hr 11/30/17 11/30/17 11/30/17 07:49 08:00 08:14 Temperature 96.0 F Pulse Rate 61 Respiratory 14 18 18 Rate Blood Pressure 96/54 (mmHg) O2 Sat by Pulse 100 Oximetry 11/30/17 08:24 Temperature 96.7 F Pulse Rate 64 Respiratory Rate Blood Pressure 97/52 (mmHg) O2 Sat by Pulse Oximetry Oxygen Devices in Use Now: None Appearance: Alert, NAD Ears/Nose/Mouth/Throat: NL Teeth, Lips, Gums, Mucous Membranes Moist Neck: NL Appearance and Movements; NL JVP, Trachea Midline Respiratory: Symmetrical Chest Expansion and Respiratory Effort, Clear to Auscultation Cardiovascular: NL Sounds; No Murmurs; No JVD, RRR, No Edema Abdominal: NL Sounds; No Tenderness; No Distention Extremities: No Edema, No Clubbing, Cyanosis Skin: No Rash or Ulcers Neurological: Alert and Oriented x 3 Nutrition: Taking PO's, - - tolerating CLD Result Diagrams: 11/30/17 05:47 11/30/17 05:47 Microbiology and Other Data: Microbiology 11/30/17 01:08 Nasal Screen MRSA (PCR)([facility]) - Final Nasal Mrsa Not Detected Diagnostic Imaging: Patient Name: PIPER HARE Medical Record#: [id number] Ordering Physician: Angle WOOD Acct.#: [id number] : 1930 Age: 87 Sex: F Location: EMERGENCY DEPARTMENT Exam Date: 11/29/171656 ADM Status: [facility] ER Order Information: CT ABD/PEL W/O Accession Number: [id number] CPT: 94246 INDICATION: Lower abdominal pain. Constipation. Post cholecystectomy, appendectomy, hysterectomy. COMPARISON: November 29, 2017 abdomen radiograph. TECHNIQUE: Multidetector CT images were obtained from the lung bases to the ischial tuberosities. Evaluation of the viscera is limited without IV contrast. Multiplanar reformation. REPORT: Arms down position results in beam hardening artifact. Mild interstitial fibrosis and bronchiectasis at the lung bases. Cardiomegaly. Post cholecystectomy. Negative for biliary dilatation. Unremarkable liver, pancreas, spleen. No CT abnormality of the upper GI or small bowel. Post appendectomy. Large volume of stool present throughout the colon. Severe diverticulosis of the sigmoid colon. Mild mural thickening and perienteric inflammatory change at the sigmoid colon. Conspicuity is limited due to artifact from the LEFT hip prosthesis. The rectum is largely decompressed. Small volume of free pelvic fluid along the LEFT pelvic sidewall. Negative for free air. Fat-containing LEFT femoral hernia without inflammatory change. Small fat- containing RIGHT indirect inguinal hernia without inflammatory change. Normal adrenal glands. Advanced cortical atrophy of the RIGHT kidney. Nonobstructing 0.8 cm lower pole RIGHT kidney calyceal stone. Moderately severe cortical atrophy of the LEFT kidney. 6.3 cm simple cyst at the upper pole of the LEFT kidney. Negative for hydronephrosis. No gross abnormality along the course of the ureters however conspicuity of the distal LEFT ureter is limited due to artifact from the LEFT hip prosthesis. Largely decompressed urinary bladder. Negative for lymphadenopathy. Mild atherosclerotic plaque of normal diameter abdominal aorta and iliac arteries. Physiologic partial distention of the IVC. Polyarticular degenerative arthropathy. Grade 1 degenerative L4-L5 anterolisthesis. Degenerative spondylosis and facet joint osteoarthritis results in moderate L4- L5 central canal stenosis. Negative for suspicious focal osseous lesions. IMPRESSION: The constellation of findings is most consistent with acute diverticulitis. Small volume of free fluid along the LEFT pelvic sidewall. No perienteric abscess evident. Follow-up after therapy warranted to assess for resolution. <Electronically signed by Connor Marks MD in [place]> 11/29/171822 Dictated By: Connor Marks MD Dictated Date/Time: 11/29/171822 Transcribed Date/Time: 11/29/171806 Copy to: 1 of 2 Assess/Plan/Problems-Billing Assessment: - Patient Problems (1) Diverticulitis large intestine w/o perforation or abscess w/o bleeding Code(s): K57.32 - DVTRCLI OF LG INT W/O PERFORATION OR ABSCESS W/O BLEEDING SNOMED Code(s): 1342997 Comment: - CT as above, no perforation - Continue IV cipro and flagyl - Clears as tolerated - Started on GoLytely for bowel function - Pain control as needed (2) ESRD on peritoneal dialysis Code(s): N18.6 - END STAGE RENAL DISEASE; Z99.2 - DEPENDENCE ON RENAL DIALYSIS SNOMED Code(s): 41148186 Comment: - Tolerating nightly exchanges - Care as per Dr. Parmar (3) Diabetes Code(s): E11.9 - TYPE 2 DIABETES MELLITUS WITHOUT COMPLICATIONS SNOMED Code(s) : 00839785 Comment: - Accuchecks AC and HS with lispro SS (4) Hypertension Code(s): I10 - ESSENTIAL (PRIMARY) HYPERTENSION SNOMED Code(s): 40848666 Comment: - BP stable, not on medications (5) Hx SBO Code(s): Z87.19 - PERSONAL HISTORY OF OTHER DISEASES OF THE DIGESTIVE SYSTEM SNOMED Code(s): 405330115298891 Comment: - Also hx of intussesception, stable (6) DVT prophylaxis Code(s): GJH5728 - SNOMED Code(s): 707831293 Comment: - HSQ (7) Full code status Code(s): Z78.9 - OTHER SPECIFIED HEALTH STATUS SNOMED Code(s): 533070356 Status and Disposition: Remain inpatient, advance diet slowly, continue IV atbx
[2017-11-30] MEDS: Heparin VIAL(*) 5000 UNITS/ML VIAL (FIVE THOUSAND) SUBCUT SCH ×2 (14:43→22:21)
[2017-11-30] MEDS: Ciprofloxacin 400MG IVPREMIX(* 400 MG/200 ML BAG IVPB SCH (15:59)
[2017-11-30 16:03] LABS: ABS Basophils 0 10^3/ul (0-0.2); ABS Eosinophils 0.2 10^3/ul (0-0.6); ABS Lymphocytes 0.6 10^3/ul (1.0-4.8); ABS Monocytes 0.4 10^3/ul (0-0.8); ABS Neutrophils 5.8 10^3/ul (1.5-7.7); ABS Nucleated RBC 0 10^3/ul; Eosinophil % 2.4 % (0-6); Hematocrit 23 % (35-47); Hemoglobin 7.8 g/dl (12.0-16.0); Lymphocyte % 8.6 % (25-47); Mean Corpuscular HGB Conc 35 g/dl (31-36); Mean Corpuscular Hemoglobin 38 pg (27-31); Mean Corpuscular Volume 109 fL (80-97); Mean Platelet Volume 6.5 um3 (7.4-10.4); Nucleated Red Blood Cells % 0; Platelet Count 127 10^3/ul (150-450); Red Blood Count 2.07 10^6/ul (4.0-5.4); Red Cell Distribution Width 15 % (10.5-15); White Blood Count 6.9 10^3/ul (3.5-10.8)
[2017-11-30 16:25] LABS: EGFR Non-African American 3.4 (>60)
[2017-11-30] MEDS: Ondansetron INJ* 2 MG/ML VIAL IV PRN (18:00)
[2017-12-01] MEDS: metroNIDAZOLE IV 500 MG/100ML* 500 MG/100 ML BAG IVPB SCH ×4 (00:26→23:11)
[2017-12-01] MEDS: Heparin VIAL(*) 5000 UNITS/ML VIAL (FIVE THOUSAND) SUBCUT SCH ×3 (05:50→20:38)
[2017-12-01] MEDS: Gabapentin CAP(*) 100 MG PO SCH ×4 (07:43→20:37)
[2017-12-01] MEDS: Multivitamins/Minerals TAB PO SCH (07:43)
[2017-12-01] MEDS: CMCS: Pantoprazole TAB (NF) 40 MG TAB PO SCH (07:43)
[2017-12-01] MEDS: Calcium Acetate CAP* 667 MG PO SCH ×4 (07:43→15:18)
[2017-12-01] MEDS: Atorvastatin* 10 MG TAB PO SCH (07:43)
[2017-12-01] MEDS: Docusate CAP* 100 MG PO SCH (07:44)
[2017-12-01] MEDS: Insulin LISPRO* 1 UNITS UNIT SUBCUT SCH ×3 (07:44→16:47)
[2017-12-01] MEDS: Mupirocin 2% OINT* TUBE TOPICAL SCH (07:53)
--- NOTE | 2017-12-01 11:03 | PN ---
Subjective Date of Service: 12/01/17 Interval History: C/o of feeling dizzy and groggy this AM, as well as diarrhea. Denies chest pain or shortness of breath. Denies n/v or abd pain. Family History: Unchanged from Admission Social History: Unchanged from Admission Past Medical History: Unchanged from Admission Objective Active Medications: Acetaminophen (Tylenol Tab*) 650 mg PO Q6H PRN PRN Reason: FEVER/PAIN Atorvastatin Calcium (Lipitor*) 10 mg PO DAILY [facility] Last Admin: 12/01/17 07:43 Dose: 10 mg Calcium Acetate (Phoslo Cap*) 667 mg PO TID [facility] Last Admin: 12/01/17 10:39 Dose: Not Given Dextrose (D50w Syringe 50 Ml*) 12.5 gm IV PUSH .FOR FS < 60 - SS PRN PRN Reason: FS < 60 Docusate Sodium (Colace Cap*) 100 mg PO BID [facility] Last Admin: 12/01/17 07:44 Dose: Not Given Gabapentin (Neurontin Cap(*)) 100 mg PO TID [facility] Last Admin: 12/01/17 07:54 Dose: 100 mg Heparin Sodium (Porcine) (Heparin Vial(*)) 5,000 units SUBCUT Q8HR [facility] Last Admin: 12/01/17 05:50 Dose: 5,000 units Ciprofloxacin/Dextrose (Cipro 400 Mg Ivpremix(*)) 400 mg in 200 mls @ 200 mls/ hr IVPB Q24H [facility] Last Admin: 11/30/17 15:59 Dose: 200 mls/hr Metronidazole/Sodium Chloride (Flagyl 500 Mg Ivpb*) 500 mg in 100 mls @ 100 mls /hr IVPB Q8H [facility] Last Admin: 12/01/17 07:43 Dose: 100 mls/hr Insulin Human Lispro (Humalog*) 0 units SUBCUT [facility] PRN Reason: Protocol Last Admin: 12/01/17 07:44 Dose: Not Given Methadone HCl (Dolophine Tab*) 5 mg PO Q6H PRN PRN Reason: PAIN Multivitamins/Minerals (Theragran/Minerals Tab*) 1 tab PO DAILY [facility] Last Admin: 12/01/17 07:43 Dose: 1 tab Mupirocin (Bactroban 2 % Oint*) 1 applic TOPICAL DAILY [facility] Last Admin: 12/01/17 07:53 Dose: 1 applic Ondansetron HCl (Zofran Inj*) 4 mg IV Q6H PRN PRN Reason: NAUSEA Last Admin: 11/30/17 18:00 Dose: 4 mg Pantoprazole Sodium (Protonix Tab (Nf)) 40 mg PO DAILY [facility] Last Admin: 12/01/17 07:43 Dose: 40 mg Vital Signs - 8 hr 12/01/17 12/01/17 12/01/17 03:53 07:54 08:00 Temperature 96.7 F Pulse Rate Respiratory 18 18 18 Rate Blood Pressure (mmHg) O2 Sat by Pulse Oximetry 12/01/17 12/01/17 08:04 10:38 Temperature 95.7 F Pulse Rate 67 Respiratory 20 18 Rate Blood Pressure 98/54 (mmHg) O2 Sat by Pulse 96 Oximetry Oxygen Devices in Use Now: None Appearance: appears tired resting in bed Eyes: No Scleral Icterus Ears/Nose/Mouth/Throat: Clear Oropharnyx, Mucous Membranes Moist Neck: NL Appearance and Movements; NL JVP, Trachea Midline Respiratory: Symmetrical Chest Expansion and Respiratory Effort, Clear to Auscultation Cardiovascular: NL Sounds; No Murmurs; No JVD, No Edema Abdominal: NL Sounds; No Tenderness; No Distention Extremities: No Clubbing, Cyanosis Skin: No Rash or Ulcers Neurological: Alert and Oriented x 3 Nutrition: Taking PO's - clears Result Diagrams: 11/30/17 15:43 11/30/17 15:43 Microbiology and Other Data: Microbiology 11/30/17 01:08 Nasal Screen MRSA (PCR)([facility]) - Final Nasal Mrsa Not Detected Diagnostic Imaging: Patient Name: PIPER HERCULES Medical Record#: [id number] Ordering Physician: Angle WOOD Acct.#: [id number] : 1930 Age: 87 Sex: F Location: EMERGENCY DEPARTMENT Exam Date: 11/29/171656 ADM Status: REG ER Order Information: CT ABD/PEL W/O Accession Number: [id number] CPT: 09731 INDICATION: Lower abdominal pain. Constipation. Post cholecystectomy, appendectomy, hysterectomy. COMPARISON: November 29, 2017 abdomen radiograph. TECHNIQUE: Multidetector CT images were obtained from the lung bases to the ischial tuberosities. Evaluation of the viscera is limited without IV contrast. Multiplanar reformation. REPORT: Arms down position results in beam hardening artifact. Mild interstitial fibrosis and bronchiectasis at the lung bases. Cardiomegaly. Post cholecystectomy. Negative for biliary dilatation. Unremarkable liver, pancreas, spleen. No CT abnormality of the upper GI or small bowel. Post appendectomy. Large volume of stool present throughout the colon. Severe diverticulosis of the sigmoid colon. Mild mural thickening and perienteric inflammatory change at the sigmoid colon. Conspicuity is limited due to artifact from the LEFT hip prosthesis. The rectum is largely decompressed. Small volume of free pelvic fluid along the LEFT pelvic sidewall. Negative for free air. Fat-containing LEFT femoral hernia without inflammatory change. Small fat- containing RIGHT indirect inguinal hernia without inflammatory change. Normal adrenal glands. Advanced cortical atrophy of the RIGHT kidney. Nonobstructing 0.8 cm lower pole RIGHT kidney calyceal stone. Moderately severe cortical atrophy of the LEFT kidney. 6.3 cm simple cyst at the upper pole of the LEFT kidney. Negative for hydronephrosis. No gross abnormality along the course of the ureters however conspicuity of the distal LEFT ureter is limited due to artifact from the LEFT hip prosthesis. Largely decompressed urinary bladder. Negative for lymphadenopathy. Mild atherosclerotic plaque of normal diameter abdominal aorta and iliac arteries. Physiologic partial distention of the IVC. Polyarticular degenerative arthropathy. Grade 1 degenerative L4-L5 anterolisthesis. Degenerative spondylosis and facet joint osteoarthritis results in moderate L4- L5 central canal stenosis. Negative for suspicious focal osseous lesions. IMPRESSION: The constellation of findings is most consistent with acute diverticulitis. Small volume of free fluid along the LEFT pelvic sidewall. No perienteric abscess evident. Follow-up after therapy warranted to assess for resolution. <Electronically signed by Connor Marks MD in [place]> 11/29/171822 Dictated By: Connor Marks MD Dictated Date/Time: 11/29/171822 Transcribed Date/Time: 11/29/171806 Copy to: 1 of 2 Assess/Plan/Problems-Billing Assessment: Ms. Hercules is an 87 y.o female with a history, ESRD on PD, DM, hx of SBO who presented to the Emergency room with lower abd pain found to have diverticulitis - Patient Problems (1) Diverticulitis large intestine w/o perforation or abscess w/o bleeding Current Visit: Yes Status: Acute Code(s): K57.32 - DVTRCLI OF LG INT W/O PERFORATION OR ABSCESS W/O BLEEDING SNOMED Code(s): 1432935 Comment: - no perforation - Continue IV cipro and flagyl - Clears as tolerated - Started on GoLytely for bowel function- BM reported- reporting diarrhea - Having several loose BM's, will hold colace for now. - Pain control as needed (2) Diabetes Current Visit: Yes Status: Acute Code(s): E11.9 - TYPE 2 DIABETES MELLITUS WITHOUT COMPLICATIONS SNOMED Code(s): 70228880 Comment: - Accuchecks AC and HS with lispro SS (3) ESRD on peritoneal dialysis Current Visit: Yes Status: Acute Code(s): N18.6 - END STAGE RENAL DISEASE; Z99.2 - DEPENDENCE ON RENAL DIALYSIS SNOMED Code(s): 97599968 Comment: - Tolerating nightly exchanges - Care as per Dr. Parmar (4) Hypertension Current Visit: Yes Status: Acute Code(s): I10 - ESSENTIAL (PRIMARY) HYPERTENSION SNOMED Code(s): 95396427 Comment: - BP stable, not on medications (5) Diarrhea due to drug Current Visit: Yes Status: Acute Code(s): K52.1 - TOXIC GASTROENTERITIS AND COLITIS SNOMED Code(s): 459061882 Comment: - with diarrhea after GoLytely- having multiple episodes daily- will hold colace - tucks for hemorrhoids - will monitor for volume depletion and replace as needed (6) DVT prophylaxis Current Visit: Yes Status: Acute Code(s): SRY5596 - SNOMED Code(s): 903378867 Comment: - HSQ (7) Full code status Current Visit: Yes Status: Acute Code(s): Z78.9 - OTHER SPECIFIED HEALTH STATUS SNOMED Code(s): 661741835 Status and Disposition: Remain inpatient, advance diet slowly, continue IV atbx
[2017-12-01] MEDS ORDERED: Benzocaine/Menthol LOZ* 1 LOZENGE PO PRN (14:10)
[2017-12-01] MEDS: Witch Hazel PAD* JAR TOPICAL SCH (14:16)
[2017-12-01] MEDS: Ciprofloxacin 400MG IVPREMIX(* 400 MG/200 ML BAG IVPB SCH (15:14)
[2017-12-01] MEDS: Ondansetron INJ* 2 MG/ML VIAL IV PRN ×2 (16:31→22:14)
[2017-12-01] MEDS: Acetaminophen TAB* 325 MG PO PRN (16:47)
[2017-12-01] MEDS ORDERED: PROCHLORPERAZINE INJ 5 MG/ML 2 ML VIAL IV PRN (19:51)
[2017-12-02] MEDS: Heparin VIAL(*) 5000 UNITS/ML VIAL (FIVE THOUSAND) SUBCUT SCH ×3 (06:01→21:04)
[2017-12-02] MEDS: Insulin LISPRO* 1 UNITS UNIT SUBCUT SCH ×3 (07:29→17:49)
[2017-12-02] MEDS: Calcium Acetate CAP* 667 MG PO SCH ×3 (07:29→18:08)
[2017-12-02 08:05] LABS: ABS Basophils 0 10^3/ul (0-0.2); ABS Eosinophils 0.2 10^3/ul (0-0.6); ABS Lymphocytes 0.5 10^3/ul (1.0-4.8); ABS Monocytes 0.4 10^3/ul (0-0.8); ABS Neutrophils 5.4 10^3/ul (1.5-7.7); ABS Nucleated RBC 0 10^3/ul; Eosinophil % 2.4 % (0-6); Hematocrit 22 % (35-47); Hemoglobin 7.9 g/dl (12.0-16.0); Lymphocyte % 8.5 % (25-47); Mean Corpuscular HGB Conc 35 g/dl (31-36); Mean Corpuscular Hemoglobin 38 pg (27-31); Mean Corpuscular Volume 107 fL (80-97); Mean Platelet Volume 6.5 um3 (7.4-10.4); Nucleated Red Blood Cells % 0; Platelet Count 126 10^3/ul (150-450); Red Cell Distribution Width 14 % (10.5-15); White Blood Count 6.5 10^3/ul (3.5-10.8)
[2017-12-02 08:11] LABS: EGFR Non-African American 3.9 (>60)
[2017-12-02] MEDS: Multivitamins/Minerals TAB PO SCH (09:51)
[2017-12-02] MEDS: CMCS: Pantoprazole TAB (NF) 40 MG TAB PO SCH (09:51)
[2017-12-02] MEDS: Gabapentin CAP(*) 100 MG PO SCH ×3 (09:51→21:03)
[2017-12-02] MEDS: Atorvastatin* 10 MG TAB PO SCH (09:51)
[2017-12-02] MEDS: Witch Hazel PAD* JAR TOPICAL SCH (09:52)
[2017-12-02] MEDS: Mupirocin 2% OINT* TUBE TOPICAL SCH (09:52)
[2017-12-02] MEDS: metroNIDAZOLE IV 500 MG/100ML* 500 MG/100 ML BAG IVPB SCH ×2 (09:53→17:41)
--- NOTE | 2017-12-02 15:49 | PN ---
Subjective Date of Service: 12/02/17 Interval History: continues to report diarrhea, states that it is improving some, continue to have dizziness reports that it is caused by her gabapentin and that she only takes this medications at night because it cause her to be dizzy. Denies chest pain or shortness of breath. Denies any nausea or vomiting. states that she is feeling better today. Family History: Unchanged from Admission Social History: Unchanged from Admission Past Medical History: Unchanged from Admission Objective Active Medications: Acetaminophen (Tylenol Tab*) 650 mg PO Q6H PRN PRN Reason: FEVER/PAIN Last Admin: 12/01/17 16:47 Dose: 650 mg Atorvastatin Calcium (Lipitor*) 10 mg PO DAILY [facility] Last Admin: 12/02/17 09:51 Dose: 10 mg Calcium Acetate (Phoslo Cap*) 667 mg PO TID [facility] Last Admin: 12/02/17 13:15 Dose: Not Given Dextrose (D50w Syringe 50 Ml*) 12.5 gm IV PUSH .FOR FS < 60 - SS PRN PRN Reason: FS < 60 Gabapentin (Neurontin Cap(*)) 100 mg PO TID [facility] Last Admin: 12/02/17 13:27 Dose: Not Given Heparin Sodium (Porcine) (Heparin Vial(*)) 5,000 units SUBCUT Q8HR [facility] Last Admin: 12/02/17 13:30 Dose: 5,000 units Ciprofloxacin/Dextrose (Cipro 400 Mg Ivpremix(*)) 400 mg in 200 mls @ 200 mls/ hr IVPB Q24H [facility] Last Admin: 12/01/17 15:14 Dose: 200 mls/hr Metronidazole/Sodium Chloride (Flagyl 500 Mg Ivpb*) 500 mg in 100 mls @ 100 mls /hr IVPB Q8H [facility] Last Admin: 12/02/17 09:53 Dose: 100 mls/hr Insulin Human Lispro (Humalog*) 0 units SUBCUT [facility] PRN Reason: Protocol Last Admin: 12/02/17 13:29 Dose: 3 units Methadone HCl (Dolophine Tab*) 5 mg PO Q6H PRN PRN Reason: PAIN Multivitamins/Minerals (Theragran/Minerals Tab*) 1 tab PO DAILY [facility] Last Admin: 12/02/17 09:51 Dose: 1 tab Mupirocin (Bactroban 2 % Oint*) 1 applic TOPICAL DAILY [facility] Last Admin: 12/02/17 09:52 Dose: 1 applic Ondansetron HCl (Zofran Inj*) 4 mg IV Q6H PRN PRN Reason: NAUSEA Last Admin: 12/01/17 22:14 Dose: 4 mg Pantoprazole Sodium (Protonix Tab (Nf)) 40 mg PO DAILY [facility] Last Admin: 12/02/17 09:51 Dose: 40 mg Prochlorperazine Edisylate (Compazine Inj*) 5 mg IV Q6H PRN PRN Reason: NAUSEA/VOMITING Last Admin: 12/01/17 20:38 Dose: 5 mg Throat Lozenges (Chloraseptic Bonnie*) 1 bonnie PO Q2H PRN PRN Reason: SORE/DRY THROAT Last Admin: 12/01/17 15:14 Dose: 1 bonnie Witch Norma (Tucks*) 1 pad TOPICAL DAILY [facility] Last Admin: 12/02/17 09:52 Dose: 1 pad Vital Signs - 8 hr 12/02/17 12/02/17 08:00 11:30 Temperature 97.0 F Pulse Rate 72 Respiratory 18 18 Rate Blood Pressure 103/59 (mmHg) O2 Sat by Pulse 100 Oximetry Oxygen Devices in Use Now: None Appearance: alert, sitting on the edge of bed, appears comfortable. Eyes: No Scleral Icterus Ears/Nose/Mouth/Throat: Clear Oropharnyx, Mucous Membranes Moist Neck: NL Appearance and Movements; NL JVP, Trachea Midline Respiratory: Symmetrical Chest Expansion and Respiratory Effort, Clear to Auscultation Cardiovascular: NL Sounds; No Murmurs; No JVD, RRR, No Edema Abdominal: NL Sounds; No Tenderness; No Distention, - - PD access site intact, dressing dry and intact. Extremities: No Edema, No Clubbing, Cyanosis Skin: No Rash or Ulcers, - - small amount of redness noted to the perianal area Neurological: Alert and Oriented x 3 Nutrition: Taking PO's Result Diagrams: 12/02/17 07:43 12/02/17 07:43 Microbiology and Other Data: Microbiology 11/30/17 01:08 Nasal Screen MRSA (PCR)([facility]) - Final Nasal Mrsa Not Detected Assess/Plan/Problems-Billing Assessment: Ms. Hercules is an 87 y.o female with a history, ESRD on PD, DM, hx of SBO who presented to the Emergency room with lower abd pain found to have diverticulitis - Patient Problems (1) Diverticulitis large intestine w/o perforation or abscess w/o bleeding Current Visit: Yes Status: Acute Code(s): K57.32 - DVTRCLI OF LG INT W/O PERFORATION OR ABSCESS W/O BLEEDING SNOMED Code(s): 5278315 Comment: - no perforation - Continue IV cipro and flagyl- will change to PO starting tomorrow - continues to have no abdominal pain, will advance to soft diet - BM reported formed stool at first - now reporting diarrhea -Having several loose BM's, will hold colace for now. - Pain control as needed (2) Diabetes Current Visit: Yes Status: Acute Code(s): E11.9 - TYPE 2 DIABETES MELLITUS WITHOUT COMPLICATIONS SNOMED Code(s): 36262739 Comment: - Accuchecks AC and HS with lispro SS (3) Dizziness Current Visit: Yes Status: Acute Code(s): R42 - DIZZINESS AND GIDDINESS SNOMED Code(s): 412524943 Comment: -reports that this is related to gabapentin and that she normally take this medications only at night. - will change dosing to night only (4) ESRD on peritoneal dialysis Current Visit: Yes Status: Acute Code(s): N18.6 - END STAGE RENAL DISEASE; Z99.2 - DEPENDENCE ON RENAL DIALYSIS SNOMED Code(s): 72804851 Comment: - Tolerating nightly exchanges - Care as per Dr. Parmar (5) Hypertension Current Visit: Yes Status: Acute Code(s): I10 - ESSENTIAL (PRIMARY) HYPERTENSION SNOMED Code(s): 96488491 Comment: - BP stable, not on medications (6) Diarrhea due to drug Current Visit: Yes Status: Acute Code(s): K52.1 - TOXIC GASTROENTERITIS AND COLITIS SNOMED Code(s): 058653675 Comment: - with diarrhea after GoLytely- having multiple episodes daily- will hold colace - tucks for hemorrhoids - will monitor for volume depletion and replace as needed (7) DVT prophylaxis Current Visit: Yes Status: Acute Code(s): KYQ2480 - SNOMED Code(s): 673162398 Comment: - HSQ (8) Full code status Current Visit: Yes Status: Acute Code(s): Z78.9 - OTHER SPECIFIED HEALTH STATUS SNOMED Code(s): 314074461 Status and Disposition: Remain inpatient, advance diet slowly, continue IV atbx
[2017-12-02] MEDS ORDERED: Magnesium Sulfate 1 GM IV* 1 GM/100 ML BAG IV ONE (16:00)
[2017-12-02] MEDS: Ciprofloxacin 400MG IVPREMIX(* 400 MG/200 ML BAG IVPB SCH (16:18)
[2017-12-02] MEDS: metroNIDAZOLE TAB* 250 MG PO SCH (21:02)
[2017-12-03] MEDS: Heparin VIAL(*) 5000 UNITS/ML VIAL (FIVE THOUSAND) SUBCUT SCH ×3 (05:29→20:36)
[2017-12-03 07:20] LABS: ABS Basophils 0 10^3/ul (0-0.2); ABS Eosinophils 0.1 10^3/ul (0-0.6); ABS Lymphocytes 0.6 10^3/ul (1.0-4.8); ABS Monocytes 0.4 10^3/ul (0-0.8); ABS Neutrophils 5.8 10^3/ul (1.5-7.7); ABS Nucleated RBC 0 10^3/ul; Eosinophil % 2.2 % (0-6); Hematocrit 24 % (35-47); Hemoglobin 8.5 g/dl (12.0-16.0); Lymphocyte % 8.2 % (25-47); Mean Corpuscular HGB Conc 35 g/dl (31-36); Mean Corpuscular Hemoglobin 38 pg (27-31); Mean Corpuscular Volume 108 fL (80-97); Mean Platelet Volume 6.9 um3 (7.4-10.4); Nucleated Red Blood Cells % 0; Platelet Count 150 10^3/ul (150-450); Red Blood Count 2.27 10^6/ul (4.0-5.4); Red Cell Distribution Width 14 % (10.5-15); White Blood Count 6.9 10^3/ul (3.5-10.8)
[2017-12-03] MEDS: CMCS: Pantoprazole TAB (NF) 40 MG TAB PO SCH (08:57)
[2017-12-03] MEDS: Multivitamins/Minerals TAB PO SCH (08:57)
[2017-12-03] MEDS: Atorvastatin* 10 MG TAB PO SCH (08:57)
[2017-12-03] MEDS: metroNIDAZOLE TAB* 250 MG PO SCH ×3 (08:57→20:36)
[2017-12-03] MEDS: Ciprofloxacin TAB* 500 MG PO SCH (08:57)
[2017-12-03] MEDS: Calcium Acetate CAP* 667 MG PO SCH ×3 (08:58→17:31)
[2017-12-03] MEDS: Mupirocin 2% OINT* TUBE TOPICAL SCH (08:59)
[2017-12-03] MEDS: Insulin LISPRO* 1 UNITS UNIT SUBCUT SCH ×3 (08:59→16:31)
[2017-12-03] MEDS: Witch Hazel PAD* JAR TOPICAL SCH (08:59)
--- NOTE | 2017-12-03 19:49 | PN ---
Subjective Date of Service: 12/03/17 Interval History: Patient states that she is feeling better, diarrhea has subsided. Denies any abd pain, n/v denies chest pain or shortness of breath. c/o of feeling wobbly with ambulation. Family History: Unchanged from Admission Social History: Unchanged from Admission Past Medical History: Unchanged from Admission Objective Active Medications: Acetaminophen (Tylenol Tab*) 650 mg PO Q6H PRN PRN Reason: FEVER/PAIN Last Admin: 12/01/17 16:47 Dose: 650 mg Atorvastatin Calcium (Lipitor*) 10 mg PO DAILY [facility] Last Admin: 12/03/17 08:57 Dose: 10 mg Calcium Acetate (Phoslo Cap*) 667 mg PO TID [facility] Last Admin: 12/03/17 17:31 Dose: 667 mg Ciprofloxacin (Cipro Tab*) 500 mg PO DAILY [facility] Last Admin: 12/03/17 08:57 Dose: 500 mg Dextrose (D50w Syringe 50 Ml*) 12.5 gm IV PUSH .FOR FS < 60 - SS PRN PRN Reason: FS < 60 Gabapentin (Neurontin Cap(*)) 100 mg PO BEDTIME [facility] Last Admin: 12/02/17 21:03 Dose: 100 mg Heparin Sodium (Porcine) (Heparin Vial(*)) 5,000 units SUBCUT Q8HR [facility] Last Admin: 12/03/17 13:13 Dose: 5,000 units Insulin Human Lispro (Humalog*) 0 units SUBCUT [facility] PRN Reason: Protocol Last Admin: 12/03/17 16:31 Dose: Not Given Methadone HCl (Dolophine Tab*) 5 mg PO Q6H PRN PRN Reason: PAIN Metronidazole (Flagyl Tab*) 500 mg PO TID [facility] Last Admin: 12/03/17 13:12 Dose: 500 mg Multivitamins/Minerals (Theragran/Minerals Tab*) 1 tab PO DAILY [facility] Last Admin: 12/03/17 08:57 Dose: 1 tab Mupirocin (Bactroban 2 % Oint*) 1 applic TOPICAL DAILY [facility] Last Admin: 12/03/17 08:59 Dose: 1 applic Pantoprazole Sodium (Protonix Tab (Nf)) 40 mg PO DAILY [facility] Last Admin: 12/03/17 08:57 Dose: 40 mg Prochlorperazine Edisylate (Compazine Inj*) 5 mg IV Q6H PRN PRN Reason: NAUSEA/VOMITING Last Admin: 12/01/17 20:38 Dose: 5 mg Throat Lozenges (Chloraseptic Bonnie*) 1 bonnie PO Q2H PRN PRN Reason: SORE/DRY THROAT Last Admin: 12/01/17 15:14 Dose: 1 bonnie Witch Norma (Tucks*) 1 pad TOPICAL DAILY [facility] Last Admin: 12/03/17 08:59 Dose: 1 pad Vital Signs - 8 hr 12/03/17 12/03/17 12/03/17 11:55 15:33 15:35 Temperature 97.3 F Pulse Rate 72 71 Respiratory 12 Rate Blood Pressure 98/49 92/51 (mmHg) O2 Sat by Pulse 97 99 Oximetry Oxygen Devices in Use Now: None Appearance: appears comfortable sitting in the chair Eyes: No Scleral Icterus Ears/Nose/Mouth/Throat: Clear Oropharnyx, Mucous Membranes Moist Neck: NL Appearance and Movements; NL JVP, Trachea Midline Respiratory: Symmetrical Chest Expansion and Respiratory Effort, Clear to Auscultation Cardiovascular: NL Sounds; No Murmurs; No JVD Extremities: No Edema, No Clubbing, Cyanosis Skin: No Rash or Ulcers Neurological: Alert and Oriented x 3, NL Muscle Strength and Tone Nutrition: Taking PO's Result Diagrams: 12/03/17 06:22 12/02/17 07:43 Microbiology and Other Data: Microbiology 11/30/17 01:08 Nasal Screen MRSA (PCR)([facility]) - Final Nasal Mrsa Not Detected Diagnostic Imaging: Patient Name: PIPER HERCULES Medical Record#: [id number] Ordering Physician: Angle WOOD Acct.#: [id number] : 1930 Age: 87 Sex: F Location: EMERGENCY DEPARTMENT Exam Date: 11/29/171656 ADM Status: REG ER Order Information: CT ABD/PEL W/O Accession Number: [id number] CPT: 77245 INDICATION: Lower abdominal pain. Constipation. Post cholecystectomy, appendectomy, hysterectomy. COMPARISON: November 29, 2017 abdomen radiograph. TECHNIQUE: Multidetector CT images were obtained from the lung bases to the ischial tuberosities. Evaluation of the viscera is limited without IV contrast. Multiplanar reformation. REPORT: Arms down position results in beam hardening artifact. Mild interstitial fibrosis and bronchiectasis at the lung bases. Cardiomegaly. Post cholecystectomy. Negative for biliary dilatation. Unremarkable liver, pancreas, spleen. No CT abnormality of the upper GI or small bowel. Post appendectomy. Large volume of stool present throughout the colon. Severe diverticulosis of the sigmoid colon. Mild mural thickening and perienteric inflammatory change at the sigmoid colon. Conspicuity is limited due to artifact from the LEFT hip prosthesis. The rectum is largely decompressed. Small volume of free pelvic fluid along the LEFT pelvic sidewall. Negative for free air. Fat-containing LEFT femoral hernia without inflammatory change. Small fat- containing RIGHT indirect inguinal hernia without inflammatory change. Normal adrenal glands. Advanced cortical atrophy of the RIGHT kidney. Nonobstructing 0.8 cm lower pole RIGHT kidney calyceal stone. Moderately severe cortical atrophy of the LEFT kidney. 6.3 cm simple cyst at the upper pole of the LEFT kidney. Negative for hydronephrosis. No gross abnormality along the course of the ureters however conspicuity of the distal LEFT ureter is limited due to artifact from the LEFT hip prosthesis. Largely decompressed urinary bladder. Negative for lymphadenopathy. Mild atherosclerotic plaque of normal diameter abdominal aorta and iliac arteries. Physiologic partial distention of the IVC. Polyarticular degenerative arthropathy. Grade 1 degenerative L4-L5 anterolisthesis. Degenerative spondylosis and facet joint osteoarthritis results in moderate L4- L5 central canal stenosis. Negative for suspicious focal osseous lesions. IMPRESSION: The constellation of findings is most consistent with acute diverticulitis. Small volume of free fluid along the LEFT pelvic sidewall. No perienteric abscess evident. Follow-up after therapy warranted to assess for resolution. <Electronically signed by Connor Marks MD in [facility]> 11/29/171822 Dictated By: Connor Marks MD Dictated Date/Time: 11/29/171822 Transcribed Date/Time: 11/29/171806 Copy to: 1 of 2 Assess/Plan/Problems-Billing Assessment: Ms. Hercules is an 87 y.o female with a history, ESRD on PD, DM, hx of SBO who presented to the Emergency room with lower abd pain found to have diverticulitis - Patient Problems (1) Diverticulitis large intestine w/o perforation or abscess w/o bleeding Current Visit: Yes Status: Acute Code(s): K57.32 - DVTRCLI OF LG INT W/O PERFORATION OR ABSCESS W/O BLEEDING SNOMED Code(s): 2990686 Comment: - Cipro and flagyl PO - continues to have no abdominal pain, tolerating soft diet -diarrhea has subsided (2) Diabetes Current Visit: Yes Status: Acute Code(s): E11.9 - TYPE 2 DIABETES MELLITUS WITHOUT COMPLICATIONS SNOMED Code(s): 69475647 Comment: - Accuchecks AC and HS with lispro SS (3) Dizziness Current Visit: Yes Status: Acute Code(s): R42 - DIZZINESS AND GIDDINESS SNOMED Code(s): 599583629 Comment: -reports that this is related to gabapentin and that she normally take this medications only at night. - will change dosing to night only (4) ESRD on peritoneal dialysis Current Visit: Yes Status: Acute Code(s): N18.6 - END STAGE RENAL DISEASE; Z99.2 - DEPENDENCE ON RENAL DIALYSIS SNOMED Code(s): 94025441 Comment: - Tolerating nightly exchanges - Care as per Dr. Parmar (5) Diarrhea due to drug Current Visit: Yes Status: Acute Code(s): K52.1 - TOXIC GASTROENTERITIS AND COLITIS SNOMED Code(s): 224572357 Comment: - resolved - will monitor for volume depletion and replace as needed (6) DVT prophylaxis Current Visit: Yes Status: Acute Code(s): IUO4594 - SNOMED Code(s): 817767619 Comment: - HSQ (7) Full code status Current Visit: Yes Status: Acute Code(s): Z78.9 - OTHER SPECIFIED HEALTH STATUS SNOMED Code(s): 554625121 Status and Disposition: Remain inpatient, advance diet slowly, continue IV atbx
[2017-12-03] MEDS: Gabapentin CAP(*) 100 MG PO SCH (20:36)
[2017-12-03] MEDS ORDERED: NS 0.9% 500 ML* 500 ML IV SCH (21:00)
[2017-12-04] MEDS: Acetaminophen TAB* 325 MG PO PRN (04:03)
[2017-12-04] MEDS: Heparin VIAL(*) 5000 UNITS/ML VIAL (FIVE THOUSAND) SUBCUT SCH ×2 (05:27→14:22)
[2017-12-04] MEDS: Calcium Acetate CAP* 667 MG PO SCH ×2 (07:47→12:39)
[2017-12-04] MEDS: Atorvastatin* 10 MG TAB PO SCH (07:47)
[2017-12-04] MEDS: Ciprofloxacin TAB* 500 MG PO SCH (07:47)
[2017-12-04] MEDS: Witch Hazel PAD* JAR TOPICAL SCH (07:47)
[2017-12-04] MEDS: CMCS: Pantoprazole TAB (NF) 40 MG TAB PO SCH (07:47)
[2017-12-04] MEDS: metroNIDAZOLE TAB* 250 MG PO SCH ×2 (07:47→14:22)
[2017-12-04] MEDS: Mupirocin 2% OINT* TUBE TOPICAL SCH (07:47)
[2017-12-04] MEDS: Multivitamins/Minerals TAB PO SCH (07:47)
[2017-12-04] MEDS: Insulin LISPRO* 1 UNITS UNIT SUBCUT SCH ×2 (08:57→12:38)
[2017-12-04 12:25] VITALS: BP 110/78
--- NOTE | 2017-12-05 03:07 | DS ---
DISCHARGE SUMMARY: DATE OF ADMISSION: 11/29/17 DATE OF DISCHARGE: 12/04/17 ATTENDING PHYSICIAN WHILE IN THE HOSPITAL: Benjamin Dunaway MD * (dictated by Parisa Luna NP). PRIMARY CARE PROVIDER: Dr. Mike Mcgee. PRIMARY DIAGNOSES: 1. Diverticulitis. 2. Constipation. SECONDARY DIAGNOSES: 1. End-stage renal disease with peritoneal dialysis. 2. Diabetes, controlled with oral medication. 3. Osteoarthritis. 4. Hypertension, controlled without medication. 5. Hyperlipidemia. STUDIES COMPLETED WHILE IN THE HOSPITAL: She had an x-ray of her abdomen on 08/06. Radiologist's impression: Large volume of formed appearing stool throughout the colon without suggestion of significant rectal distention. No dilated bowel loops or indication of bowel obstruction. CT of the abdomen and pelvis on 11/29/17. Radiologist's impression: Findings are most consistent with acute diverticulitis, small volume of free fluid along the left pelvic sidewall. There is no addis-enteric abscess evident. There is recommended followup after therapy warranted to assess for resolution. She had an electrocardiogram on 11/29/17, which showed sinus rhythm under the rate of 66. DISCHARGE MEDICATIONS: New medications: Augmentin 500 mg p.o. daily x5 more days. This is to be taken in the a.m. after completing her peritoneal dialysis. Continued home medications: 1. Acetaminophen 650 mg p.o. q. 4 hours as needed for pain. 2. PhosLo cap resume 1 cap t.i.d. 3. Docusate sodium 100 mg p.o. b.i.d. 4. Gabapentin 100 mg p.o. at h.s. 5. Glipizide 10 mg p.o. daily. 6. Methadone 5 mg p.o. q.6 hours as needed for pain. 7. Multivitamin 1 tablet p.o. daily. 8. Bactroban topically as needed. 9. Protonix 40 mg p.o. daily. 10. Simvastatin 20 mg p.o. daily. HISTORY OF PRESENT ILLNESS AND HOSPITAL COURSE: Ms. Hercules is an 87-year-old female with past medical significant for end-stage renal disease, diabetes, hypertension, small bowel obstruction in the past, who presented with 1.5 weeks that she started taking phosphate binder and had to change her peritoneal dialysis regimen, which was for constipation producing only small amounts of mucus at this time. The patient has significant pain 7/10 in her lower abdomen , but did not have any nausea, vomiting, diarrhea, fever or chills. She did try using a suppository at home, which did not help. She is on chronic therapy with stool softeners, did not try anything else to stimulate bowel movement. The patient denied any chest pain, shortness of breath, denied any urinary frequency or urgency. Stated, she was a little tired. While in the emergency room, the patient had routine lab work drawn and a CT of the abdomen and pelvis, which showed diverticulitis of the sigmoid colon and also showed some constipation. Dr. Parmar was contacted and it was recommended that she have GoLYTELY. During her hospitalization, she was monitored on telemetry, she received her nightly peritoneal dialysis. She received IV Cipro and Flagyl for treatment of her diverticulitis. After the GoLYTELY, she did have a large bowel movement initially were formed stool and then with diarrhea. She did have diarrhea for approximately 2 to 3 days. On 12/03/17 the patient complained of little lightheadedness and her blood pressure was running soft in the upper 80s to 98/ 49. She was given 500 cc of normal saline at 125 cc an hour for gentle hydration. This morning on 12/04/17, the patient states that she feels much better. She states the dizziness has resolved. She initially contributed the dizziness related to the gabapentin as she was being given gabapentin 3 times daily and she only takes that nightly due to it causing her to have dizziness. Her medication was changed to just nightly. The patient is feeling better today , she has been afebrile. She denies any abdominal pain, nausea, vomiting or diarrhea, has resolved. She denies any fever or chills. At this time, she is stable for discharge home. Ms. Hercules will be discharged home today. Vital signs are as follows, blood pressure 110/78, temperature 97.9, heart rate 84, respirations 16, O2 saturation was 98% on room air. DISCHARGE PLAN: 1. Ms. Hercules will be discharged back home today. 2. Activity as tolerated. 3. She is to continue on a renal diet. 4. Diverticulitis. She should continue Augmentin 500 mg p.o. daily in the a.m. after her peritoneal dialysis for the next 5 days. She should continue her Colace stool softeners. 5. End-stage renal disease. She should continue her nightly peritoneal dialysis as prescribed by Dr. Parmar. 6. Diabetes. She should continue on her home oral diabetic medications as previously prescribed. The patient should follow up with her primary care provider in 4 to 7 days. She will also have home physical therapy to help with strength training and gait. The patient was instructed to return to the emergency room for any chest pain, shortness of breath or any increased abdominal pain or any other concerning symptoms. This is summarization of her hospitalization. For further details, please see the entire medical record. TIME SPENT: Time spent on this discharge was approximately 60 minutes, greater than half the time was spent with the patient discussing discharge plans and instructions. This plan was discussed with my attending, Dr. Benjamin Dunaway and he agrees with my plan of discharge. CONDITION ON DISCHARGE: Stable. PARISA LUNA NP [id number]/[facility] #: [id number] CINTIA
== END 2017-12-04 15:30 | disposition home or self-care (01) | DRG 391 ==
LOC: ED 14:40 → MED 21:54 → OBSVTOIN 11-30 09:30
PROVIDERS: ADMIT Hospitalist; ATTEND Internal Medicine
PROC: 3E1M39Z Irrigation of Peritoneal Cavity using Dialysate, Percutaneous Approach (ICD-10-PCS; principal; 2017-11-30)
DX: K57.32 Diverticulitis of large intestine without perforation or abscess without bleeding (principal); N18.6 End stage renal disease; I12.0 Hypertensive chronic kidney disease with stage 5 chronic kidney disease or end stage renal disease; K52.1 Toxic gastroenteritis and colitis; K59.00 Constipation, unspecified; E11.22 Type 2 diabetes mellitus with diabetic chronic kidney disease; D63.1 Anemia in chronic kidney disease; M19.90 Unspecified osteoarthritis, unspecified site; E78.5 Hyperlipidemia, unspecified; Z79.84 Long term (current) use of oral hypoglycemic drugs; Z99.2 Dependence on renal dialysis; Z79.1 Long term (current) use of non-steroidal anti-inflammatories (NSAID); Z79.899 Other long term (current) drug therapy; Z88.2 Allergy status to sulfonamides; Z88.1 Allergy status to other antibiotic agents; Z91.011 Allergy to milk products; Z91.013 Allergy to seafood; Z84.1 Family history of disorders of kidney and ureter; Z80.7 Family history of other malignant neoplasms of lymphoid, hematopoietic and related tissues; Z80.51 Family history of malignant neoplasm of kidney; Z83.3 Family history of diabetes mellitus; Z82.49 Family history of ischemic heart disease and other diseases of the circulatory system
CPT/HCPCS: 36415; 74019; 74176; 80048; 80053; 82565; 83690; 83735; 84520; 85025; 85610; 85730; 86140; 87641; 90945; 93005; 99284; A9270-GY; G0257; G8978-GP-CI; G8979-GP-CI; G8987-GO-CJ; G8988-GO-CI; J0744; J0780; J1644; J2405; J3475; J3490

== ENCOUNTER 2018-03-07 13:13 | Day surgery (SDC) | payer MEDICARE ==
[~2018-03-07 13:13] MED LIST: Buffered Lidocaine 0.9% SYRIN* 5 ML/SYR SYRINGE INTRADERM ONE; Famotidine IV* 10 MG/ML 2 ML (20 mg) IV ONE; Heparin VIAL(*) 5000 UNITS/ML VIAL (FIVE THOUSAND) ONE; Lidocain 1% EPI 1:100,000 * 30 ML MDV ONE; NS 0.9% 500 ML* 500 ML IV ONE
[2018-03-07] MEDS ORDERED: Famotidine IV* 10 MG/ML 2 ML (20 mg) ONE (13:17)
[2018-03-07] MEDS ORDERED: fentaNYL* 50 MCG/ML 2 ML VIAL (100 MCG VIAL) ONE (15:15)
[2018-03-07] MEDS ORDERED: Midazolam* 1 MG/ML 2 ML VIAL (2 MG) ONE (15:15)
[2018-03-07] MEDS ORDERED: ceFAZolin 1 GM VIAL(*) ONE (15:37)
[2018-03-07] MEDS ORDERED: Lidocaine 2% PF * 5 ML VIAL ONE (16:01)
[2018-03-07] MEDS ORDERED: Propofol* 10 MG/ML 20 ML BTL IV PUSH ONE (16:01)
[2018-03-07] MEDS ORDERED: Acetaminophen TAB* 325 MG PO PRN (16:02)
[2018-03-07] MEDS ORDERED: DiMENhydriNATE IV* 50 MG/ML VIAL IV PUSH PRN (16:04)
--- NOTE | 2018-03-07 16:23 | BRIEFOPN ---
Brief Operative Note - Surgery Procedures: Procedures Pre-OP Diagnoses: ESRD Post-op Diagnosis: same Procedure: placement of bioflo duramax hemodialysis catheter Surgeon: Renzo Asst: none Anethesia: local, MAC EBL: minimal IVF: minimal Specimen: none Drains: 28cm catheter placed via RIJV
[2018-03-07 17:05] VITALS: BP 134/76
--- NOTE | 2018-03-07 19:26 | RAD ---
INDICATION: End-stage renal disease. Tunneled hemodialysis catheter placement. Technique: 107.7 seconds of?fluoroscopy?was provided?for the physician proceduralist. REPORT: The final spot image documents the distal tip of the RIGHT-sided tunneled dual-lumen central venous catheter at level of the RIGHT atrium. IMPRESSION: Procedural control films. CPT II Codes: G9500
--- NOTE | 2018-03-08 03:12 | OP ---
CC: Dr. Pk Parmar; Dr. Mike Mcgee * DATE OF OPERATION: 03/07/18 - [facility] DATE OF : 34 SURGEON: Ramone Muller MD HAND STONE POLISHER: None. ANESTHESIOLOGIST: Dr. Crow. ANESTHESIA: Local MAC anesthesia. PRE-OP DIAGNOSIS: End-stage renal disease. POST-OP DIAGNOSIS: End-stage renal disease. OPERATIVE PROCEDURE: Insertion of a 28-cm BioFlo DuraMax hemodialysis catheter. ESTIMATED BLOOD LOSS: Minimal. FLUID: Minimal crystalloid fluid given. SPECIMEN: None. INDICATIONS: Patient was identified in the preoperative area. Case discussed with her. Consent was signed. DESCRIPTION OF PROCEDURE: She was marked, brought to the operating room, placed in the operating table in supine position. Preoperative antibiotics were given. Sequential devices were placed in bilateral lower extremities. General sedation was given. The patient's right upper chest and neck were prepped and draped in the standard surgical fashion. Time-out was performed. Injection of lidocaine along the proposed stick site overlying the right IJ was carried out. Attempts were made and ultimately the IJ vein was accessed and a wire inserted with ease. Under fluoroscopy, we noted that the wire had inserted through the axillary vein. This was backed up and aligned into the appropriate fashion into the superior vena cava. Once the wire was in place, the needle was removed. The tract was made with lidocaine along the proposed tunneling of the catheter. This catheter was then tunneled with the appropriate tunneler to the initial stick incision, which was increased in size. Next, we dilated the internal jugular vein. The internal jugular vein was dilated with given dilators. This showed some difficulty pushing the medium size dilator and for this reason, a small dilator was reinserted and a guidewire inserted that had a stiffer caliber. Once this was in place, we could easily insert the other dilators and once the split-away catheter was inserted, we inserted the catheter through this and the split away portion of it was removed. Fluoroscopy assured that was in the right place, there was no kinking. Blood aspirated with ease and both ports were flushed with saline followed by heparinized saline. Next, the skin incisions were reapproximated with 4-0 Monocryl subcuticular sutures followed by Steri-Strips. Patient tolerated the procedure well, was woken up and transferred to the PACU in stable condition. [id number]/[facility] #: [id number] [facility] HOSPITALJulius
== END 2018-03-07 17:20 | disposition home or self-care (01) ==
LOC: OR 13:13
PROVIDERS: ATTEND Surgery
DX: N18.6 End stage renal disease (principal); N39.0 Urinary tract infection, site not specified; E78.5 Hyperlipidemia, unspecified; M19.90 Unspecified osteoarthritis, unspecified site; M10.9 Gout, unspecified; D64.9 Anemia, unspecified; Z99.2 Dependence on renal dialysis; I12.9 Hypertensive chronic kidney disease with stage 1 through stage 4 chronic kidney disease, or unspecified chronic kidney disease; E11.9 Type 2 diabetes mellitus without complications; Z79.84 Long term (current) use of oral hypoglycemic drugs
CPT/HCPCS: 76000; C1750; J0690; J1644; J2250; J2704; J3010

== ENCOUNTER 2018-03-27 06:22 | Day surgery (SDC) | payer MEDICARE ==
[~2018-03-27 06:22] MED LIST changes: -Famotidine IV* 10 MG/ML 2 ML (20 mg) IV ONE; -Heparin VIAL(*) 5000 UNITS/ML VIAL (FIVE THOUSAND) ONE; -Lidocain 1% EPI 1:100,000 * 30 ML MDV ONE; +NS 0.45% 1000 ML BAG* 1,000 ML IV SCH; -NS 0.9% 500 ML* 500 ML IV ONE
[2018-03-27] MEDS ORDERED: ceFAZolin 2 GM PREMIX (*) 2 GM/50 ML BAG IVPB ONE (06:24)
[2018-03-27] MEDS ORDERED: Midazolam* 1 MG/ML 2 ML VIAL (2 MG) ONE (07:12)
[2018-03-27] MEDS ORDERED: fentaNYL* 50 MCG/ML 2 ML VIAL (100 MCG VIAL) ONE (07:12)
[2018-03-27] MEDS ORDERED: Bupivacaine 0.25% W/EPI* 10 ML SDV ONE ×2 (07:22→07:24)
[2018-03-27] MEDS ORDERED: Dexamethasone IV* 4 MG/ML 1 ML (4 MG) ONE (07:36)
[2018-03-27] MEDS ORDERED: Propofol* 10 MG/ML 20 ML BTL IV PUSH ONE (07:36)
[2018-03-27] MEDS ORDERED: Lidocaine 2% PF * 5 ML VIAL ONE (07:36)
[2018-03-27] MEDS ORDERED: Famotidine IV* 10 MG/ML 2 ML (20 mg) ONE (07:36)
[2018-03-27] MEDS ORDERED: Ondansetron INJ* 2 MG/ML VIAL IV PRN (07:55)
[2018-03-27] MEDS ORDERED: fentaNYL* 50 MCG/ML 2 ML VIAL (100 MCG VIAL) IV PRN (07:55)
[2018-03-27] MEDS ORDERED: Acetaminophen TAB* 325 MG PO PRN (07:55)
[2018-03-27] MEDS ORDERED: PROCHLORPERAZINE INJ 5 MG/ML 2 ML VIAL IV PRN (07:55)
[2018-03-27] MEDS ORDERED: Naloxone* 0.4 MG/ML 1 ML VIAL IV PRN (07:55)
--- NOTE | 2018-03-27 08:01 | BRIEFOPN ---
Brief Operative Note - Surgery Procedures: Procedures Pre-OP Diagnoses: ESRD Post-op Diagnosis: same Procedure: removal of peritoneal dialysis catheter Surgeon: Renzo Asst: none Anethesia: local MAC EBL: minimal IVF: crystalloid Specimen: none Drains: none
[2018-03-27 08:29] VITALS: BP 109/52
--- NOTE | 2018-04-04 02:54 | OP ---
CC: Dr. Pk Parmar; [facility]. OPERATIVE REPORT: DATE OF OPERATION: 03/27/18. DATE OF : 34. SURGEON: Dr. Muller. FRONT END SOFTWARE ENGINEER: None. ANESTHESIA: Local MAC anesthesia. PRE-OP DIAGNOSIS: End-stage renal disease, nonfunctioning peritoneal dialysis catheter. POST-OP DIAGNOSIS: End-stage renal disease, nonfunctioning peritoneal dialysis catheter. OPERATIVE PROCEDURE: Removal of peritoneal dialysis catheter. ESTIMATED BLOOD LOSS: Minimal blood loss. IV FLUIDS: Minimal crystalloid fluid given. DESCRIPTION OF PROCEDURE: The patient was identified in the preoperative area, consent was signed. The patient was marked, brought to the operating room, placed on the operating table in the supine po sition, preoperative antibiotics were given. Sequential devices were placed on the bilateral lower ex tremities. Gentle sedation was given. The patient's abdomen was prepped and draped in the standard surgical fashion. We draped the PD catheter off the field. Injection of lidocaine along the proposed incision overlying the left rectus muscle was carried out. This incision was made. This was deepened down to the catheter, which was isolated. The intramuscu lar cuff was dissected free as was the subcutaneous cuff and the catheter was removed in its entirety . We did do this in 3 pieces to ensure that the cuffs do not have to track through any of the tissue s. We irrigated the wound and reapproximated the anterior fascia with a 0 Polysorb and then reapproxi mated the skin in the standard fashion. Sterile dressing was applied. The patient tolerated the pro cedure well and was transferred to the PACU in stable condition. [id number]/[facility] #: [id number]
== END 2018-03-27 08:52 | disposition home or self-care (01) ==
LOC: OR 06:22
PROVIDERS: ATTEND Surgery
DX: N18.6 End stage renal disease (principal); I12.9 Hypertensive chronic kidney disease with stage 1 through stage 4 chronic kidney disease, or unspecified chronic kidney disease; E11.40 Type 2 diabetes mellitus with diabetic neuropathy, unspecified; E78.5 Hyperlipidemia, unspecified; E66.9 Obesity, unspecified
CPT/HCPCS: J0690; J1100; J2250; J2704; J3010

== ENCOUNTER → 2018-05-15 08:47 | Day surgery (SDC) | payer MEDICARE ==
--- NOTE | 2018-04-30 06:51 | HP ---
HISTORY AND PHYSICAL: DATE OF ADMISSION: 05/15/18 She is scheduled for surgery at [facility], 05/15/18. ATTENDING PHYSICIAN: Phong Szymanski MD * (DICTATED BY MYRNA EGAN NP) CHIEF COMPLAINT: Renal failure and failed peritoneal dialysis catheter. HISTORY OF PRESENT ILLNESS: Selina Hercules is an 87-year-old female who was referred to Dr. Szymanski for a arteriovenous fistula for dialysis. The patient at the present time has a jugular catheter that is being used. She had a peritoneal catheter, which failed and was removed approximately [address] Muller. She has a history of type 2 diabetes and history of leg ulcers and which were treated with sulfa and she developed renal failure from the sulfa. A venous duplex scan was done, which showed that the cephalic vein in the upper arm is 7.2 mm, lower arm is 3.6 mm diameter and the mid arm is 3.8 mm, the radial artery is 2.2 mm and brachial artery is 5.1 mm. There is a 4 mm basilic vein. At the time of examination, it was felt that it would be best to use a graft for the patient instead of using her own veins for the fistula. Dr. Szymanski has discussed the nature and course of an AV fistula and graft and has discussed the material risks and relevant alternatives to surgery. These are reviewed with the patient at her preoperative report including, but not limited to, infection, bleeding, poor healing, recurrent clotting. The patient has been given a chance to ask questions and these have been answered. The patient will sign on admission an informed consent for left arm arteriovenous graft. PAST MEDICAL HISTORY: She does have a history of hypertension, but does not have this anymore. She has end-stage renal failure, diabetes type 2. She has bone spurs and arthritis in both of her shoulders with limited range of motion; her left is worse than her right. She uses a walker. PAST SURGICAL HISTORY: Placement and removal of peritoneal dialysis catheter. She also has a left hip replacement, which was done in February 2016. She has also removal of gallbladder. Dr. Mcgee is her family doctor. Dr. Parmar is her Internal Medicine and follows her for dialysis. MEDICATIONS: 1. Gabapentin 100 mg daily. 2. Glipizide 10 mg daily. 3. Pantoprazole. 4. Sodium 40 mg. 5. Sertraline HCl 25 mg. 6. Simvastatin 20 mg. 7. She also takes a stool softener twice a day. ALLERGIES: BACTRIM, SULFA, and NSAIDS. FAMILY HISTORY: Father of diabetes. Mother of cancer. Sister, heart disease, diabetes. Brother, diabetes, heart disease. SOCIAL HISTORY: The patient lives in the [facility]. She is a . She denies alcohol or tobacco use. REVIEW OF SYSTEMS: She does note that she has had difficulty waking up from anesthesia with general anesthesia. She denies taking a daily aspirin. She has her dialysis on Tuesdays, , and Saturdays. PHYSICAL EXAMINATION GENERAL: Selina Hercules is an 87-year-old female who comes to the office with her granddaughter and is in wheelchair, she does use a walker for walking, no acute distress. VITAL SIGNS: Blood pressure 143/75, pulse is 72, respirations 18, height 5 feet 7- 1/2 inches, weight 182. HEENT: Within normal limits. She does have a right-sided jugular temporary catheter for dialysis. HEART: S1, S2. Regular rate and rhythm. No extra heart sounds, murmurs, clicks, or rubs. ABDOMEN: Soft, nontender. Positive bowel sounds. Positive tympany. No masses or organomegaly. NEURO: Alert and oriented x3. The rest of the exam was grossly intact. IMPRESSION: End-stage renal failure with failed peritoneal dialysis catheter. PLAN: Same-day surgery admission to Dr. Szymanski's service for left arm arteriovenous graft. MYRNA EGAN NP [id number]/[facility] #: [id number] CINTIA
[~2018-05-15 08:47] MED LIST changes: +Acetaminophen ADULT LIQ* 650 MG/20.3 ML UDC ONE; +Acetaminophen TAB* 325 MG PO PRN; +Heparin 2 UNITS/ML IVPREMIX* 1,000 ML IV ONE; +Heparin DIALYSIS ONLY(*) 1,000 UNITS/ML VIAL ONE; +Heparin VIAL(*) 5000 UNITS/ML VIAL (FIVE THOUSAND) ONE; +Iohexol 180 (CONTRAST) 10 ML SDV IV ONE; +Iohexol 300 (CONTRAST) 100 ML SDV IV ONE; +LIDOCAINE IVPB ONE; +Lidocain 1% EPI 1:100,000 * 30 ML MDV ONE; +Midazolam* 1 MG/ML 2 ML VIAL (2 MG) ONE; +Naloxone* 0.4 MG/ML 1 ML VIAL IV PRN; +Ondansetron INJ* 2 MG/ML VIAL IV PRN; +Propofol* 10 MG/ML 20 ML BTL IV PUSH ONE; +Sodium Bicarbonate 8.4% SYR* 10 ML SYRINGE ONE; +Sodium Bicarbonate 8.4%* 50 ML SYRINGE ONE; +Surgical Lubricant STERILE* 120 GM TOP.GEL ONE; +ceFAZolin 2 GM in NS PREMIX(*) 2 GM/100 ML BAG IVPB ONE; +fentaNYL* 50 MCG/ML 2 ML VIAL (100 MCG VIAL) ONE; +oxyCODONE/Acetamin 5/325 MG* TAB PO PRN
[2018-05-15] MEDS: fentaNYL* 50 MCG/ML 2 ML VIAL (100 MCG VIAL) IV PRN ×2 (13:30→13:41)
[2018-05-15 14:35] VITALS: BP 140/64
--- NOTE | 2018-05-16 11:50 | OP ---
DATE OF OPERATION: 05/15/18 - [facility] DATE OF : 34 SURGEON: Phong Szymanski MD MANNEQUIN WIG MAKER: Asia Soria NP PRE-OP DIAGNOSIS: End-stage renal disease. POST-OP DIAGNOSIS: End-stage renal disease. OPERATIVE PROCEDURE: Insertion of left arm arteriovenous graft for dialysis ( [place]- Beni Propaten taper 4 to 6 mm). ESTIMATED BLOOD LOSS: Less than 20 cc. DESCRIPTION OF PROCEDURE: The patient was taken to the procedure room. She underwent identification of the proper arm and in this case, the left. An ultrasound preoperatively was performed to confirm the presence of the patent basilic vein on the left side and the brachial artery. After this was done, the patient was placed in the supine position, she was prepped and draped in the usual sterile fashion. She received preoperative antibiotics and after appropriate time- out, we then proceeded to felton the areas of surgery on the left arm located on the medial aspect of the left upper arm and the medial aspect of just above the elbow area. After this was completed, lidocaine 1% was just infiltrated into the surrounding area of the marked areas. First, the venous side was exposed. A transverse incision was performed just under the axilla. The dissection was carried down through the skin, subcutaneous tissue. Bleeders were controlled by electrocoagulation. The basilic vein was identified. It appeared to measure approximately 3 to 4 mm in diameter and after this was completed, the basilic vein was then encircled in [place], proximal and distally. After this was done, an incision was made above the elbow and the medial aspect of it, incision was carried through skin, subcutaneous tissue. The dissection was carried down to the brachial artery. This was then encircled in [place]essel[place], proximal and distally. After this was done, we then proceeded to felton a loop from the arterial to the venous side, infiltrated tumescent local anesthesia in the subcutaneous tissue and after this was done, using a curved tunneler from the arterial to the venous was then advanced. After this was done, the [place]-Beni Propaten taper 6 to 4 mm was then attached to the tunneler. The tunneler was pulled back and putting the graft inside the space created by the tunnel. The tunneler was removed and this connected. Proper measurements were done for both arterial and venous side and after this was completed, the patient received heparin 3000 units and after 3 minutes, we cross-clamped the vein proximally and distally. A venotomy was then performed and extended with Ducnan scissors and after this was done, an end- to-side anastomosis was done using 6-0 Prolene. After this completed, this was irrigated with a Osmin tree. Excellent flow was noticed. Excellent back flow on the venous side was noted as well. After this was done, a clamp was placed on the graft itself. We then proceeded to perform the arterial anastomosis on the tapered side and this was done after cross-clamping the artery distally and proximally. n arteriotomy was performed and extended with Duncan scissors, and after this, using a parachute technique, the anastomosis was performed using 6-0 Prolene. After this was done, the graft venous side was opened and the clamps on the artery were then released and flowing through the graft was then established. One could feel the pulse in the graft and with Doppler signal, the radial pulse was palpable with good capillary refill. No bleeding was noted at the anastomosis site. We then proceeded to close the subcutaneous tissue with 4-0 Vicryl suture and the skin with subcuticular 5-0 Monocryl and Steri-Strips. The patient tolerated the procedure well and she was taken in good condition to recovery room. [id number]/[facility] #: [id number] CINTIA
== END | disposition home or self-care (01) ==
LOC: OR 08:47
PROVIDERS: ATTEND Surgery
DX: N18.6 End stage renal disease (principal); E78.5 Hyperlipidemia, unspecified; D64.89 Other specified anemias; Z99.2 Dependence on renal dialysis; I12.9 Hypertensive chronic kidney disease with stage 1 through stage 4 chronic kidney disease, or unspecified chronic kidney disease; E10.22 Type 1 diabetes mellitus with diabetic chronic kidney disease; I12.0 Hypertensive chronic kidney disease with stage 5 chronic kidney disease or end stage renal disease; Z79.84 Long term (current) use of oral hypoglycemic drugs
CPT/HCPCS: 36415; 80048; 84132; A9270-GY; C1768; J0690; J1644; J2001; J2250; J2704; J3010